=== PATIENT | male | born 1975 | race Caucasian/White ===

== ENCOUNTER 2016-03-31 01:36 | Emergency (ER) | payer OTHER ==
[~2016-03-31 01:36] MED LIST: ATARAX OR; PAXI20TA OR; TRAZ50TA OR; VALI5TAB OR; VICODIN PO
[2016-03-31 02:07] LABS: BASO % 0.5 % (0.0-1.0); EOS % 0.8 % (0.0-3.0); LARGE UNSTAINED CELL # 0.2 K/mm3 (0.0-0.4); LARGE UNSTAINED CELL % 2.8 % (0.0-4.0); LYMPH # 2.1 K/mm3 (1.5-4.5); LYMPH % 32.3 % (24.0-44.0); MEAN CORPUSCULAR HEMOGLOBIN 32.2 pg (27.0-33.0); MEAN CORPUSCULAR HGB CONC 36.7 g/dl (32.0-36.5); MEAN CORPUSCULAR VOLUME 87.6 fl (80.0-96.0); MONO # 0.4 K/mm3 (0.0-0.8); MONO % 6.4 % (0.0-5.0); NEUTROPHILS # 3.7 K/mm3 (1.8-7.7); NEUTROPHILS % 57.2 % (36.0-66.0); PLATELET COUNT, AUTOMATED 207 k/mm3 (150-450); RED CELL DISTRIBUTION WIDTH 11.8 % (11.5-14.5); WHITE BLOOD COUNT 6.6 K/mm3 (4.0-10.0)
[2016-03-31 02:39] LABS: ANION GAP 13 MEQ/L (8-16); BLOOD UREA NITROGEN 14 MG/DL (7-18); CALCIUM LEVEL 9.3 MG/DL (8.5-10.1); CARBON DIOXIDE LEVEL 20 MEQ/L (21-32); CHLORIDE LEVEL 108 MEQ/L (98-107); CREATININE FOR GFR 0.94 MG/DL (0.70-1.30); GLOMERULAR FILTRATION RATE > 60.0 (>60); GLUCOSE, FASTING 92 MG/DL (70-105); POTASSIUM SERUM 3.9 MEQ/L (3.5-5.1); SODIUM LEVEL 141 MEQ/L (136-145)
[2016-03-31] MEDS ORDERED: LORazepam 1 MG TAB As Ordered ONE (02:41)
--- NOTE | 2016-03-31 02:43 | REP ---
Clinical: Chest pain . Comparison: 03/08/2016 . Findings: The mediastinum and cardiac silhouette are stable and within normal limits for portable technique. The lung barker are clear without acute consolidation, effusion, or pneumothorax. Skeletal structures are intact. Impression: Normal portable chest x-ray Signed by Jerardo Barlow MD 03/31/2016 02:34 A
[2016-03-31 02:44] LABS: FREE T4 1.25 NG/DL (0.76-1.46); MAGNESIUM LEVEL 2.3 MG/DL (1.8-2.4); PHOSPHORUS LEVEL 2.6 MG/DL (2.5-4.9)
--- NOTE | 2016-03-31 03:36 | EDDOCDS ---
Physician Documentation [facility] Name: Joni Kirkpatrick Age: 40 yrs Sex: Male : 1975 Arrival Date: 03/31/2016 Time: 01:36 Bed 8 Private MD: Disposition: 03/31/16 03:20 Discharged to Home/Self Care. Impression: Anxiety disorder, unspecified, Insomnia. - Condition is Stable. - Discharge Instructions: Panic Attacks, Insomnia. - Medication Reconciliation, Local Pharmacy Hours form. - Follow up: [facility], [place]; When: 1 - 2 days; Reason: Recheck today's complaints. - Problem is new. - Symptoms have improved. - Notes: You were seen in the ED for anxiety and insomnia. Bloodwork along with EKG of the heart, cardiac monitoring and chest Xray showed no other acute findings. As you are feeling better you may return home to follow up with your primary doctor at the [facility] in the morning for ongoing evaluation and treatment. Return to the ED for any chest pain, trouble breathing, lightheadedness, loss of consciousness or any other concerns. Historical: - Allergies: No known drug Allergies; - Home Meds: 1. Tylenol PM 25-500 mg-mg/mL Oral soln nightly - PMHx: Anxiety; - PSHx: none; - Social history: Smoking status: Patient states was never smoker of tobacco. No barriers to communication noted, The patient speaks fluent Turkmen. - Family history: Not pertinent. - : The pt / caregiver states he / she is not on anticoagulants. Home medication list is obtained from the patient. - Exposure Risk Screening:: None identified. Vital Signs: 03/31 01:45 BP 146 / 93; Pulse 65; Resp 18 S; Pulse Ox 99% on R/A; Weight 78.02 kg / 172 lbs (R); af2 Height 5 ft. 10 in. (177.80 cm) (R); Pain 6/10; 02:13 Temp 98.8(TE); jmv 03:26 BP 113 / 77; Pulse 71; Resp 20; Temp 97.8(TE); Pulse Ox 98% on R/A; Pain 2/10; jmv 01:45 Body Mass Index 24.68 (78.02 kg, 177.80 cm) af2 MDM: 01:42 ECG WITH READING ER PHYS+CARDIAG ordered. EDMS 01:50 Inspector Mechanical/Pulse Ox/q 30 min VS ordered. br1 01:50 IV Saline Lock ordered. br1 01:50 Rhythm Strip to chart ordered. br1 01:50 Undress patient appropriately for examination ordered. br1 01:50 Oral Temp ordered. br1 01:51 Basic Metabolic Profile Ordered. EDMS 01:51 CBC with Diff Ordered. EDMS 01:51 Cardiac Injury Profile Ordered. EDMS 01:51 Troponin Ordered. EDMS 01:51 TSH with Free T4 Ordered. EDMS 01:51 Magnesium Level Ordered. EDMS 01:51 Phosphorous Level Ordered. EDMS 01:51 portable chest Ordered. EDMS 02:29 D-Dimer Quant Ordered. EDMS 02:29 LORazepam 0.5 mg PO once; PRN ANXIETY ordered. br1 02:30 Consult PFS/PSA/Filter Press Supervisor: Resources/Social Work ordered. br1 02:40 Financial registration complete. pm4 02:42 CBC with Diff Reviewed. br1 02:46 Basic Metabolic Profile Reviewed. br1 02:46 Cardiac Injury Profile Reviewed. br1 02:46 Troponin Reviewed. br1 02:46 TSH with Free T4 Reviewed. br1 02:46 Magnesium Level Reviewed. br1 02:46 Phosphorous Level Reviewed. br1 03:13 Consult PFS/PSA/Filter Press Supervisor: Resources/Social Work complete. cl 03:13 D-Dimer Quant Reviewed. br1 03:13 portable chest Reviewed. br1 03:15 REPLACED BY [facility] Payment Agreement was scanned into [employer] and attached to record. pm4 Administered Medications: 02:45 Drug: LORazepam 0.5 mg [lorazepam 1 mg tablet (0.5 tabs)] Route: PO; af2 Signatures: Dispatcher [employer] EDMS Fco Waters, PSA PSA cl Jac Shafer MD MD br1 Chrystal Thao,RN RN af2 Terrance Schaefer, Reg Reg pm4 The chart was reviewed and I authenticate all verbal orders and agree with the evaluation and treatment provided.Attachments: 03:15 REPLACED BY [facility] Payment Agreement pm4 MTDD
--- NOTE | 2016-03-31 03:37 | EDDOCDS ---
Nurse's Notes [facility] Name: Joni Kirkpatrick Age: 40 yrs Sex: Male : 1975 Arrival Date: 03/31/2016 Time: 01:36 Bed 8 Private MD: Diagnosis: Anxiety disorder, unspecified;Insomnia Presentation: 03/31 01:47 Presenting complaint: Patient states: palpitations, insomnia, sweating, states "I think af2 I'm having an anxiety attack." Reports recent loss of job, symptoms worsened since. Acute neurological deficits are not present. Mechanism of Injury: No Mechanism of Injury. Adult Sepsis Screening: The patient does not have new or worsening altered mentation. Patient's respiratory rate is less than 22. Systolic blood pressure is greater than 100. Patient has a qSOFA score of 0- Negative Sepsis Screen. Suicide/Homicide risk assessment- the patient denies having any suicidal and/or homicidal ideations and does not present with any other emotional, behavioral or mental health complaints. Status: Patient is not a service representative or dependent. Transition of care: patient was not received from another setting of care. 01:47 Acuity: TERESA Level 3 af2 01:47 Method Of Arrival: Walkin/Carried/Asstd af2 Triage Assessment: 01:48 General: Appears in no apparent distress, Behavior is anxious. Pain: Location: back af2 Pain currently is 6 out of 10 on a pain scale. Pt Declines HIV testing. The patient is triaged at the bedside. See Assessment in Nurses Notes section of ED record. Neurological: Level of Consciousness is awake, alert, obeys commands, Oriented to person, place, time. Cardiovascular: Heart tones S1 S2 present Rhythm is sinus rhythm No ectopy. Reports palpitations. Respiratory: Airway is patent Respiratory effort is even, unlabored, Breath sounds are clear bilaterally. Derm: Skin is normal. Musculoskeletal: Reports pain in back. Historical: - Allergies: No known drug Allergies; - Home Meds: 1. Tylenol PM 25-500 mg-mg/mL Oral soln nightly - PMHx: Anxiety; - PSHx: none; - Social history: Smoking status: Patient states was never smoker of tobacco. No barriers to communication noted, The patient speaks fluent [place] Islander. - Family history: Not pertinent. - : The pt / caregiver states he / she is not on anticoagulants. Home medication list is obtained from the patient. - Exposure Risk Screening:: None identified. Screenin:25 Screening information is obtained from the patient. Fall risk: No risks identified. af2 Assistance ADL's: requires no assistance with activities of daily living. Abuse/DV Screen: The patient / caregiver reports he/she is: not in a situation that causes fear, pain or injury. Nutritional screening: No deficits noted. Advance Directives: Currently, there is no health care proxy. home support is adequate. Assessment: 02:25 General: see triage assessment.. af2 03:00 General: Appears in no apparent distress, Fco Waters PSA in to speak with pt.. af2 Social Work Consult: 03:13 Social Work Note: Pt to ED c/o anxiety sx's, states he recently lost job and has had cl difficulty sleeping x 2 weeks, denies SI/HI/AH/VH/substance abuse, is very pleasant. PSA offered referrals, pt reports he has [place] insurance and has a walk-in appt. planned at [facility] later this morning, however pt did take referral info which includes 24 hr. crisis #'s. Pt c/o poor sleep/insomnia, requests medications until he can be seen at [facility] and anticipates it will take several days for any Rx meds to be delivered from [facility], PSA informed Dr. Shafer of pt request. Pt denies any other needs at this time, will f/u at [facility] later today. Vital Signs: 01:45 BP 146 / 93; Pulse 65; Resp 18 S; Pulse Ox 99% on R/A; Weight 78.02 kg (R); Height 5 af2 ft. 10 in. (177.80 cm) (R); Pain 6/10; 02:13 Temp 98.8(TE); jmv 03:26 BP 113 / 77; Pulse 71; Resp 20; Temp 97.8(TE); Pulse Ox 98% on R/A; Pain 2/10; jmv 01:45 Body Mass Index 24.68 (78.02 kg, 177.80 cm) af2 Vitals: 01:41 Log In Time: March 31, 2016 at 01:38. af2 ED Course: 01:37 Patient visited by Ruth Edwards, Reg. hs2 01:37 Patient moved to Waiting hs2 01:40 Chrystal Thao RN is Primary Nurse. af2 01:40 Patient moved to 8 af2 01:48 Triage Initiated af2 01:49 Jac Shafer MD is Attending Physician. br1 01:49 The patient / caregiver is instructed regarding the plan of care and ED course. Patient sls1 has correct armband on for positive identification. Placed in gown. Bed in low position. Call light in reach. Side rails up X2. supervisor meter shop on. Pulse ox on. 01:49 EKG done. (by ED staff). Reviewed by Jac Shafer MD. sls1 01:50 Patient visited by Chrystal Thao RN. af2 02:01 Phosphorous Level Sent. af2 02:01 Magnesium Level Sent. af2 02:01 TSH with Free T4 Sent. af2 02:01 Basic Metabolic Profile Sent. af2 02:01 CBC with Diff Sent. af2 02:01 Cardiac Injury Profile Sent. af2 02:01 Troponin Sent. af2 02:14 Patient visited by Gurdeep Callejas PCA. jmv 02:26 Patient visited by Chrystal Thao RN. af2 02:26 Inserted saline lock: 20 gauge in left hand and blood collected. The patient tolerated af2 the procedure well. 02:29 Patient visited by Jac Shafer MD. br1 02:30 D-Dimer Quant Sent. tmm1 03:00 Patient visited by Chrystal Thao RN. af2 03:00 Patient visited by Chrystal Thao RN. af2 03:00 portable chest Returned. EDMS 03:15 [facility] Payment Agreement was scanned into [email or web address] and attached to record. pm4 03:20 [facility] is Referral Physician. br1 03:26 Patient visited by Gurdeep Callejas PCA. jmv 03:34 Discontinued IV lock intact, bleeding controlled, pressure dressing applied, No af2 redness/swelling at site. No procedures done that require assistance. Administered Medications: 02:45 Drug: LORazepam 0.5 mg [lorazepam 1 mg tablet (0.5 tabs)] Route: PO; af2 Order Results: Lab Order: Basic Metabolic Profile; SPEC'M 03/31/16 01:59 Test: GLUCOSE, FASTING; Value: 92; Range: 70-105; Units: MG/DL; Status: F Test: BLOOD UREA NITROGEN; Value: 14; Range: 7-18; Units: MG/DL; Status: F Test: CREATININE FOR GFR; Value: 0.94; Range: 0.70-1.30; Units: MG/DL; Status: F Test: GLOMERULAR FILTRATION RATE; Value: > 60.0; Range: >60; Status: F Test: SODIUM LEVEL; Value: 141; Range: 136-145; Units: MEQ/L; Status: F Test: POTASSIUM SERUM; Value: 3.9; Range: 3.5-5.1; Units: MEQ/L; Status: F Test: CHLORIDE LEVEL; Value: 108; Range: 98-107; Abnormal: Above high normal; Units: MEQ/L; Status: F Test: CARBON DIOXIDE LEVEL; Value: 20; Range: 21-32; Abnormal: Below low normal; Units: MEQ/L; Status: F Test: ANION GAP; Value: 13; Range: 8-16; Units: MEQ/L; Status: F Test: CALCIUM LEVEL; Value: 9.3; Range: 8.5-10.1; Units: MG/DL; Status: F Test Note: ; Units are mL/min/1.73 m2 Chronic Kidney Disease Staging per NKF: Stage I & II GFR >=60 Normal to Mildly Decreased Stage III GFR 30-59 Moderately Decreased Stage IV GFR 15-29 Severely Decreased Stage V GFR <15 Very Little GFR Left ESRD GFR <15 on BEHAVIORAL INTERVENTION SPECIALIST Lab Order: CBC with Diff; SPEC'M 03/31/16 01:59 Test: WHITE BLOOD COUNT; Value: 6.6; Range: 4.0-10.0; Units: K/mm3; Status: F Test: RED BLOOD COUNT; Value: 5.07; Range: 4.30-6.10; Units: M/mm3; Status: F Test: HEMOGLOBIN; Value: 16.3; Range: 14.0-18.0; Units: g/dl; Status: F Test: HEMATOCRIT; Value: 44.4; Range: 42.0-52.0; Units: %; Status: F Test: MEAN CORPUSCULAR VOLUME; Value: 87.6; Range: 80.0-96.0; Units: fl; Status: F Test: MEAN CORPUSCULAR HEMOGLOBIN; Value: 32.2; Range: 27.0-33.0; Units: pg; Status: F Test: MEAN CORPUSCULAR HGB CONC; Value: 36.7; Range: 32.0-36.5; Abnormal: Above high normal; Units: g/dl; Status: F Test: RED CELL DISTRIBUTION WIDTH; Value: 11.8; Range: 11.5-14.5; Units: %; Status: F Test: PLATELET COUNT, AUTOMATED; Value: 207; Range: 150-450; Units: k/mm3; Status: F Test: NEUTROPHILS %; Value: 57.2; Range: 36.0-66.0; Units: %; Status: F Test: LYMPH %; Value: 32.3; Range: 24.0-44.0; Units: %; Status: F Test: MONO %; Value: 6.4; Range: 0.0-5.0; Abnormal: Above high normal; Units: %; Status: F Test: EOS %; Value: 0.8; Range: 0.0-3.0; Units: %; Status: F Test: BASO %; Value: 0.5; Range: 0.0-1.0; Units: %; Status: F Test: LARGE UNSTAINED CELL %; Value: 2.8; Range: 0.0-4.0; Units: %; Status: F Test: NEUTROPHILS #; Value: 3.7; Range: 1.8-7.7; Units: K/mm3; Status: F Test: LYMPH #; Value: 2.1; Range: 1.5-4.5; Units: K/mm3; Status: F Test: MONO #; Value: 0.4; Range: 0.0-0.8; Units: K/mm3; Status: F Test: EOS #; Value: 0.0; Range: 0.0-0.50; Units: K/mm3; Status: F Test: BASO #; Value: 0.0; Range: 0.0-0.2; Units: K/mm3; Status: F Test: LARGE UNSTAINED CELL #; Value: 0.2; Range: 0.0-0.4; Units: K/mm3; Status: F Lab Order: Cardiac Injury Profile; SPEC'M 03/31/16 01:59 Test: CPK CREATINE PHOSPHOKINASE; Value: 85; Range: 39-308; Units: U/L; Status: F Test: CK-MB VALUE MASS; Value: 1.0; Range: 0.0-3.6; Units: NG/ML; Status: F Test: MB/CK RELATIVE INDEX; Value: 1.17; Range: < OR =4; Status: F Test Note: ; DIAGNOSIS CRITERIA MMB ng/ml Relative Index (RI) NON-AMI < or = 5 N/A ZEPEDA ZONE > 5 < or = 4 AMI > 5 > 4 Lab Order: Troponin; 03/31/16:59 Test: TROPONIN I; Value: < 0.02; Range: < 0.10; Units: NG/ML; Status: F Test Note: ; Troponin I Reference Interval for [employer] LOCI: 99th Percentile= 0.00-0.045 ng/ml Risk Stratification: <= 0.10 ng/ml Decreased Risk for Adverse Clinical Events. 0.10-1.50 ng/ml Increased Risk for Adverse Clinical Events. Evaluation of additional criterion and/or repeat testing in 2-6 hours is suggested to rule out myocardial damage. >= 1.50 ng/ml Indicative of Myocardial Injury. Lab Order: TSH with Free T4; 03/31/16:59 Test: THYROID STIMULATING HORMONE; Value: 0.910; Range: 0.358-3.740; Units: uIU/ML; Status: F Test: FREE T4; Value: 1.25; Range: 0.76-1.46; Units: NG/DL; Status: F Lab Order: Magnesium Level; 03/31/16:59 Test: MAGNESIUM LEVEL; Value: 2.3; Range: 1.8-2.4; Units: MG/DL; Status: F Lab Order: Phosphorous Level; 03/31/16:59 Test: PHOSPHORUS LEVEL; Value: 2.6; Range: 2.5-4.9; Units: MG/DL; Status: F Lab Order: D-Dimer Quant; 03/31/16:59 Test: D-DIMER QUANT; Value: < 270.0; Range: <500; Units: ng/ml; Status: F Radiology Order: portable chest Test: portable chest REASON FOR EXAMINATION: Chest Pain; Clinical: Chest pain .; ; Comparison: 03/08/2016 .; ; Findings:; The mediastinum and cardiac silhouette are stable and within normal limits for; portable technique. The lung barker are clear without acute consolidation,; effusion, or pneumothorax. Skeletal structures are intact.; ; Impression:; Normal portable chest x-ray; ; ; Signed by; Jerardo Barlow MD 03/31/2016 02:34 A; Outcome: 03:20 Discharge ordered by Provider. br1 03:34 Discharge Assessment: Patient awake, alert and oriented x 3. No cognitive and/or af2 functional deficits noted. Patient verbalized understanding of disposition instructions. patient administered narcotics - no. The following High Risk Discharge criteria are identified: None. Discharged to home ambulatory. Condition: stable. Discharge instructions given to patient, Instructed on discharge instructions, follow up and referral plans. Demonstrated understanding of instructions, Pt was receptive of discharge instructions/ teaching. No special radiology studies were completed. Property :Personal belongings accompany Pt. 03:35 Patient left the ED. af2 Signatures: Dispatcher [employer] EDMS Fco Waters, PSA PSA cl Jac Shafer MD MD br1 Monalisa Dye RN RN sls1 Veronica Garcia, CAREER RESOURCE TECHNICIAN CAREER RESOURCE TECHNICIAN tmm1 Chrystal Thao,RN RN af2 Ruth Edwards, Reg Reg hs2 Gurdeep Callejas, CAREER RESOURCE TECHNICIAN CAREER RESOURCE TECHNICIAN jmv Terrance Schaefer, Reg Reg pm4 MTDD
--- NOTE | 2016-04-01 06:43 | ECGEPIP ---
Stationary ECG Study [facility] - ED Test Date: 2016-03-31 Pat Name: DORA VIDES Department: Room: - Gender: M Liquor Department Manager: : 1975 Requested By: JOSEPH Anna Order Number: [id number] Reading MD: Gianna Keller Measurements Intervals [place] Rate: 57 P: 44 DE: 151 QRS: -8 QRSD: 86 T: 29 QT: 378 QTc: 371 Interpretive Statements SINUS BRADYCARDIA WITH SINUS ARRHYTHMIA SIMILAR 10/03/11 Electronically Signed On 04-01-2016 6:42:28 EST by Gianna Keller
--- NOTE | 2016-04-02 04:37 | EDDOCDS ---
Physician Documentation [facility] Name: Joni Kirkpatrick Age: 40 yrs Sex: Male : 1975 Arrival Date: 03/31/2016 Time: 01:36 Bed 8 Private MD: Disposition: 03/31/16 03:20 Discharged to Home/Self Care. Impression: Anxiety disorder, unspecified, Insomnia. - Condition is Stable. - Discharge Instructions: Panic Attacks, Insomnia. - Medication Reconciliation, Local Pharmacy Hours form. - Follow up: [facility] [place]; When: 1 - 2 days; Reason: Recheck today's complaints. - Problem is new. - Symptoms have improved. - Notes: You were seen in the ED for anxiety and insomnia. Bloodwork along with EKG of the heart, cardiac monitoring and chest Xray showed no other acute findings. As you are feeling better you may return home to follow up with your primary doctor at the [facility] in the morning for ongoing evaluation and treatment. Return to the ED for any chest pain, trouble breathing, lightheadedness, loss of consciousness or any other concerns. Historical: - Allergies: No known drug Allergies; - Home Meds: 1. Tylenol PM 25-500 mg-mg/mL Oral soln nightly - PMHx: Anxiety; - PSHx: none; - Social history: Smoking status: Patient states was never smoker of tobacco. No barriers to communication noted, The patient speaks fluent Afghan. - Family history: Not pertinent. - : The pt / caregiver states he / she is not on anticoagulants. Home medication list is obtained from the patient. - Exposure Risk Screening:: None identified. Vital Signs: 03/31 01:45 BP 146 / 93; Pulse 65; Resp 18 S; Pulse Ox 99% on R/A; Weight 78.02 kg / 172 lbs (R); af2 Height 5 ft. 10 in. (177.80 cm) (R); Pain 6/10; 02:13 Temp 98.8(TE); jmv 03:26 BP 113 / 77; Pulse 71; Resp 20; Temp 97.8(TE); Pulse Ox 98% on R/A; Pain 2/10; jmv 01:45 Body Mass Index 24.68 (78.02 kg, 177.80 cm) af2 MDM: 01:42 ECG WITH READING ER PHYS+CARDIAG ordered. EDMS 01:50 Manager Critical Care/Pulse Ox/q 30 min VS ordered. br1 01:50 IV Saline Lock ordered. br1 01:50 Rhythm Strip to chart ordered. br1 01:50 Undress patient appropriately for examination ordered. br1 01:50 Oral Temp ordered. br1 01:51 Basic Metabolic Profile Ordered. EDMS 01:51 CBC with Diff Ordered. EDMS 01:51 Cardiac Injury Profile Ordered. EDMS 01:51 Troponin Ordered. EDMS 01:51 TSH with Free T4 Ordered. EDMS 01:51 Magnesium Level Ordered. EDMS 01:51 Phosphorous Level Ordered. EDMS 01:51 portable chest Ordered. EDMS 02:29 D-Dimer Quant Ordered. EDMS 02:29 LORazepam 0.5 mg PO once; PRN ANXIETY ordered. br1 02:30 Consult PFS/PSA/Reactor Operator: Resources/Social Work ordered. br1 02:40 Financial registration complete. pm4 02:42 CBC with Diff Reviewed. br1 02:46 Basic Metabolic Profile Reviewed. br1 02:46 Cardiac Injury Profile Reviewed. br1 02:46 Troponin Reviewed. br1 02:46 TSH with Free T4 Reviewed. br1 02:46 Magnesium Level Reviewed. br1 02:46 Phosphorous Level Reviewed. br1 03:13 Consult PFS/PSA/Reactor Operator: Resources/Social Work complete. cl 03:13 D-Dimer Quant Reviewed. br1 03:13 portable chest Reviewed. br1 03:15 [facility] Payment Agreement was scanned into [employer] and attached to record. pm4 14:02 T-Sheet-- Draft Copy was scanned into [employer] and attached to record. gb 14:03 ECG/EKG was scanned into [employer] and attached to record. gb 14:03 Radiology Report was scanned into [employer] and attached to record. gb Administered Medications: 02:45 Drug: LORazepam 0.5 mg [lorazepam 1 mg tablet (0.5 tabs)] Route: PO; af2 Signatures: Dispatcher [employer] EDMS Fco Waters, CHERIE PSA cl Romy Banda, Reg Reg gb Jac Shafer MD MD br1 Chrystal Thoa RN RN af2 Terrance Schaefer, Reg Reg pm4 The chart was reviewed and I authenticate all verbal orders and agree with the evaluation and treatment provided.Attachments: 03:15 [facility] Payment Agreement pm4 14:02 T-Sheet-- Draft Copy gb 14:03 ECG/EKG gb Chart Complete MTDD
--- NOTE | 2016-04-02 04:37 | EDDOCDS ---
Nurse's Notes [facility] Name: Joni Kirkpatrick Age: 40 yrs Sex: Male : 1975 Arrival Date: 03/31/2016 Time: 01:36 Bed 8 Private MD: Diagnosis: Anxiety disorder, unspecified;Insomnia Presentation: 03/31 01:47 Presenting complaint: Patient states: palpitations, insomnia, sweating, states "I think af2 I'm having an anxiety attack." Reports recent loss of job, symptoms worsened since. Acute neurological deficits are not present. Mechanism of Injury: No Mechanism of Injury. Adult Sepsis Screening: The patient does not have new or worsening altered mentation. Patient's respiratory rate is less than 22. Systolic blood pressure is greater than 100. Patient has a qSOFA score of 0- Negative Sepsis Screen. Suicide/Homicide risk assessment- the patient denies having any suicidal and/or homicidal ideations and does not present with any other emotional, behavioral or mental health complaints. Status: Patient is not a customer service coordinator or dependent. Transition of care: patient was not received from another setting of care. 01:47 Acuity: TERESA Level 3 af2 01:47 Method Of Arrival: Walkin/Carried/Asstd af2 Triage Assessment: 01:48 General: Appears in no apparent distress, Behavior is anxious. Pain: Location: back af2 Pain currently is 6 out of 10 on a pain scale. Pt Declines HIV testing. The patient is triaged at the bedside. See Assessment in Nurses Notes section of ED record. Neurological: Level of Consciousness is awake, alert, obeys commands, Oriented to person, place, time. Cardiovascular: Heart tones S1 S2 present Rhythm is sinus rhythm No ectopy. Reports palpitations. Respiratory: Airway is patent Respiratory effort is even, unlabored, Breath sounds are clear bilaterally. Derm: Skin is normal. Musculoskeletal: Reports pain in back. Historical: - Allergies: No known drug Allergies; - Home Meds: 1. Tylenol PM 25-500 mg-mg/mL Oral soln nightly - PMHx: Anxiety; - PSHx: none; - Social history: Smoking status: Patient states was never smoker of tobacco. No barriers to communication noted, The patient speaks fluent Moroccan. - Family history: Not pertinent. - : The pt / caregiver states he / she is not on anticoagulants. Home medication list is obtained from the patient. - Exposure Risk Screening:: None identified. Screenin:25 Screening information is obtained from the patient. Fall risk: No risks identified. af2 Assistance ADL's: requires no assistance with activities of daily living. Abuse/DV Screen: The patient / caregiver reports he/she is: not in a situation that causes fear, pain or injury. Nutritional screening: No deficits noted. Advance Directives: Currently, there is no health care proxy. home support is adequate. Assessment: 02:25 General: see triage assessment.. af2 03:00 General: Appears in no apparent distress, Fco Waters PSA in to speak with pt.. af2 Social Work Consult: 03:13 Social Work Note: Pt to ED c/o anxiety sx's, states he recently lost job and has had cl difficulty sleeping x 2 weeks, denies SI/HI/AH/VH/substance abuse, is very pleasant. PSA offered referrals, pt reports he has [place] insurance and has a walk-in appt. planned at [place] later this morning, however pt did take referral info which includes 24 hr. crisis #'s. Pt c/o poor sleep/insomnia, requests medications until he can be seen at [place] and anticipates it will take several days for any Rx meds to be delivered from [facility], PSA informed Dr. Shafer of pt request. Pt denies any other needs at this time, will f/u at [place] later today. Vital Signs: 01:45 BP 146 / 93; Pulse 65; Resp 18 S; Pulse Ox 99% on R/A; Weight 78.02 kg (R); Height 5 af2 ft. 10 in. (177.80 cm) (R); Pain 6/10; 02:13 Temp 98.8(TE); jmv 03:26 BP 113 / 77; Pulse 71; Resp 20; Temp 97.8(TE); Pulse Ox 98% on R/A; Pain 2/10; jmv 01:45 Body Mass Index 24.68 (78.02 kg, 177.80 cm) af2 Vitals: 01:41 Log In Time: March 31, 2016 at 01:38. af2 ED Course: 01:37 Patient visited by Ruth Edwards, Reg. hs2 01:37 Patient moved to Waiting hs2 01:40 Chrystal ThaoRN is Primary Nurse. af2 01:40 Patient moved to 8 af2 01:48 Triage Initiated af2 01:49 Joseph Shafer MD is Attending Physician. br1 01:49 The patient / caregiver is instructed regarding the plan of care and ED course. Patient sls1 has correct armband on for positive identification. Placed in gown. Bed in low position. Call light in reach. Side rails up X2. monitor tech on. Pulse ox on. 01:49 EKG done. (by ED staff). Reviewed by Joseph Shafer MD. sls1 01:50 Patient visited by Chrystal Thao RN. af2 02:01 Phosphorous Level Sent. af2 02:01 Magnesium Level Sent. af2 02:01 TSH with Free T4 Sent. af2 02:01 Basic Metabolic Profile Sent. af2 02:01 CBC with Diff Sent. af2 02:01 Cardiac Injury Profile Sent. af2 02:01 Troponin Sent. af2 02:14 Patient visited by Gurdeep Callejas PCA. jmv 02:26 Patient visited by Chrystal Thao RN. af2 02:26 Inserted saline lock: 20 gauge in left hand and blood collected. The patient tolerated af2 the procedure well. 02:29 Patient visited by Joseph Shafer MD. br1 02:30 D-Dimer Quant Sent. tmm1 03:00 Patient visited by Chrystal Thao RN. af2 03:00 Patient visited by Chrystal Thao RN. af2 03:00 portable chest Returned. EDMS 03:15 [facility] [place] was scanned into [employer] and attached to record. pm4 03:20 [facility] is Referral Physician. br1 03:26 Patient visited by Gurdeep Callejas PCA. jmv 03:34 Discontinued IV lock intact, bleeding controlled, pressure dressing applied, No af2 redness/swelling at site. No procedures done that require assistance. 14:02 T-Sheet-- Draft Copy was scanned into [employer] and attached to record. gb 14:03 ECG/EKG was scanned into [employer] and attached to record. gb 14:03 Radiology Report was scanned into [employer] and attached to record. gb 04/01 06:53 EKG-ADULT Returned. EDMS Administered Medications: 03/31 02:45 Drug: LORazepam 0.5 mg [lorazepam 1 mg tablet (0.5 tabs)] Route: PO; af2 Order Results: Lab Order: Basic Metabolic Profile; SPEC'M 03/31/16 01:59 Test: GLUCOSE, FASTING; Value: 92; Range: 70-105; Units: MG/DL; Status: F Test: BLOOD UREA NITROGEN; Value: 14; Range: 7-18; Units: MG/DL; Status: F Test: CREATININE FOR GFR; Value: 0.94; Range: 0.70-1.30; Units: MG/DL; Status: F Test: GLOMERULAR FILTRATION RATE; Value: > 60.0; Range: >60; Status: F Test: SODIUM LEVEL; Value: 141; Range: 136-145; Units: MEQ/L; Status: F Test: POTASSIUM SERUM; Value: 3.9; Range: 3.5-5.1; Units: MEQ/L; Status: F Test: CHLORIDE LEVEL; Value: 108; Range: 98-107; Abnormal: Above high normal; Units: MEQ/L; Status: F Test: CARBON DIOXIDE LEVEL; Value: 20; Range: 21-32; Abnormal: Below low normal; Units: MEQ/L; Status: F Test: ANION GAP; Value: 13; Range: 8-16; Units: MEQ/L; Status: F Test: CALCIUM LEVEL; Value: 9.3; Range: 8.5-10.1; Units: MG/DL; Status: F Test Note: ; Units are mL/min/1.73 m2 Chronic Kidney Disease Staging per NKF: Stage I & II GFR >=60 Normal to Mildly Decreased Stage III GFR 30-59 Moderately Decreased Stage IV GFR 15-29 Severely Decreased Stage V GFR <15 Very Little GFR Left ESRD GFR <15 on INFORMATICS NURSE Lab Order: CBC with Diff; SPEC'M 03/31/16 01:59 Test: WHITE BLOOD COUNT; Value: 6.6; Range: 4.0-10.0; Units: K/mm3; Status: F Test: RED BLOOD COUNT; Value: 5.07; Range: 4.30-6.10; Units: M/mm3; Status: F Test: HEMOGLOBIN; Value: 16.3; Range: 14.0-18.0; Units: g/dl; Status: F Test: HEMATOCRIT; Value: 44.4; Range: 42.0-52.0; Units: %; Status: F Test: MEAN CORPUSCULAR VOLUME; Value: 87.6; Range: 80.0-96.0; Units: fl; Status: F Test: MEAN CORPUSCULAR HEMOGLOBIN; Value: 32.2; Range: 27.0-33.0; Units: pg; Status: F Test: MEAN CORPUSCULAR HGB CONC; Value: 36.7; Range: 32.0-36.5; Abnormal: Above high normal; Units: g/dl; Status: F Test: RED CELL DISTRIBUTION WIDTH; Value: 11.8; Range: 11.5-14.5; Units: %; Status: F Test: PLATELET COUNT, AUTOMATED; Value: 207; Range: 150-450; Units: k/mm3; Status: F Test: NEUTROPHILS %; Value: 57.2; Range: 36.0-66.0; Units: %; Status: F Test: LYMPH %; Value: 32.3; Range: 24.0-44.0; Units: %; Status: F Test: MONO %; Value: 6.4; Range: 0.0-5.0; Abnormal: Above high normal; Units: %; Status: F Test: EOS %; Value: 0.8; Range: 0.0-3.0; Units: %; Status: F Test: BASO %; Value: 0.5; Range: 0.0-1.0; Units: %; Status: F Test: LARGE UNSTAINED CELL %; Value: 2.8; Range: 0.0-4.0; Units: %; Status: F Test: NEUTROPHILS #; Value: 3.7; Range: 1.8-7.7; Units: K/mm3; Status: F Test: LYMPH #; Value: 2.1; Range: 1.5-4.5; Units: K/mm3; Status: F Test: MONO #; Value: 0.4; Range: 0.0-0.8; Units: K/mm3; Status: F Test: EOS #; Value: 0.0; Range: 0.0-0.50; Units: K/mm3; Status: F Test: BASO #; Value: 0.0; Range: 0.0-0.2; Units: K/mm3; Status: F Test: LARGE UNSTAINED CELL #; Value: 0.2; Range: 0.0-0.4; Units: K/mm3; Status: F Lab Order: Cardiac Injury Profile; 03/31/16:59 Test: CPK CREATINE PHOSPHOKINASE; Value: 85; Range: 39-308; Units: U/L; Status: F Test: CK-MB VALUE MASS; Value: 1.0; Range: 0.0-3.6; Units: NG/ML; Status: F Test: MB/CK RELATIVE INDEX; Value: 1.17; Range: < OR =4; Status: F Test Note: ; DIAGNOSIS CRITERIA MMB ng/ml Relative Index (RI) NON-AMI < or = 5 N/A ZEPEDA ZONE > 5 < or = 4 AMI > 5 > 4 Lab Order: Troponin; 03/31/16 Test: TROPONIN I; Value: < 0.02; Range: < 0.10; Units: NG/ML; Status: F Test Note: ; Troponin I Reference Interval for [place] LOCI: 99th Percentile= 0.00-0.045 ng/ml Risk Stratification: <= 0.10 ng/ml Decreased Risk for Adverse Clinical Events. 0.10-1.50 ng/ml Increased Risk for Adverse Clinical Events. Evaluation of additional criterion and/or repeat testing in 2-6 hours is suggested to rule out myocardial damage. >= 1.50 ng/ml Indicative of Myocardial Injury. Lab Order: TSH with Free T4; 03/31/16 Test: THYROID STIMULATING HORMONE; Value: 0.910; Range: 0.358-3.740; Units: uIU/ML; Status: F Test: FREE T4; Value: 1.25; Range: 0.76-1.46; Units: NG/DL; Status: F Lab Order: Magnesium Level; 03/31/16 Test: MAGNESIUM LEVEL; Value: 2.3; Range: 1.8-2.4; Units: MG/DL; Status: F Lab Order: Phosphorous Level; 03/31/16 Test: PHOSPHORUS LEVEL; Value: 2.6; Range: 2.5-4.9; Units: MG/DL; Status: F Lab Order: D-Dimer Quant; SPEC'M 03/31/16 01:59 Test: D-DIMER QUANT; Value: < 270.0; Range: <500; Units: ng/ml; Status: F Radiology Order: EKG-ADULT Test: EKG-ADULT REASON FOR EXAMINATION: palpitations; Stationary ECG Study; [facility] - ED; ; Test Date: 2016-03-31; Pat Name: JONI KIRKPATRICK Department:; Room: -; Gender: M Kitchen Porter: ss; : 1975 Requested By: JOSEPH Anna; Order Number: [id number] Reading MD: Gianna Keller; Measurements; Intervals [place]; Rate: 57 P: 44; NC: 151 QRS: -8; QRSD: 86 T: 29; QT: 378; QTc: 371; Interpretive Statements; SINUS BRADYCARDIA WITH SINUS ARRHYTHMIA; SIMILAR 10/03/11; Electronically Signed On 04-01-2016 6:42:28 EST by Gianna Keller; Radiology Order: portable chest Test: portable chest REASON FOR EXAMINATION: Chest Pain; Clinical: Chest pain .; ; Comparison: 03/08/2016 .; ; Findings:; The mediastinum and cardiac silhouette are stable and within normal limits for; portable technique. The lung barker are clear without acute consolidation,; effusion, or pneumothorax. Skeletal structures are intact.; ; Impression:; Normal portable chest x-ray; ; ; Signed by; Jerardo Barlow MD 03/31/2016 02:34 A; Outcome: 03:20 Discharge ordered by Provider. br1 03:34 Discharge Assessment: Patient awake, alert and oriented x 3. No cognitive and/or af2 functional deficits noted. Patient verbalized understanding of disposition instructions. patient administered narcotics - no. The following High Risk Discharge criteria are identified: None. Discharged to home ambulatory. Condition: stable. Discharge instructions given to patient, Instructed on discharge instructions, follow up and referral plans. Demonstrated understanding of instructions, Pt was receptive of discharge instructions/ teaching. No special radiology studies were completed. Property :Personal belongings accompany Pt. 03:35 Patient left the ED. af2 Signatures: Dispatcher [employer] EDMS Fco Waters, PSA PSA cl Romy Banda, Reg Reg gb Joseph Shafer MD MD br1 Monalisa Dye RN RN sls1 Rahda, Veronica, RESOURCE AGENT RESOURCE AGENT tmm1 Chrystal Thao,WARREN RN af2 Ruth Edwards, Reg Reg hs2 Callejas, Gurdeep, RESOURCE AGENT RESOURCE AGENT jmv Terrance Schaefer, Reg Reg pm4 Chart Complete MTDD
--- NOTE | 2016-04-02 04:37 | EDDOCDS ---
Physician Documentation [facility] Name: Joni Kirkpatrick Age: 40 yrs Sex: Male : 1975 Arrival Date: 03/31/2016 Time: 01:36 Bed 8 Private MD: Disposition: 03/31/16 03:20 Discharged to Home/Self Care. Impression: Anxiety disorder, unspecified, Insomnia. - Condition is Stable. - Discharge Instructions: Panic Attacks, Insomnia. - Medication Reconciliation, Local Pharmacy Hours form. - Follow up: [facility], [place]; When: 1 - 2 days; Reason: Recheck today's complaints. - Problem is new. - Symptoms have improved. - Notes: You were seen in the ED for anxiety and insomnia. Bloodwork along with EKG of the heart, cardiac monitoring and chest Xray showed no other acute findings. As you are feeling better you may return home to follow up with your primary doctor at the [facility] in the morning for ongoing evaluation and treatment. Return to the ED for any chest pain, trouble breathing, lightheadedness, loss of consciousness or any other concerns. Historical: - Allergies: No known drug Allergies; - Home Meds: 1. Tylenol PM 25-500 mg-mg/mL Oral soln nightly - PMHx: Anxiety; - PSHx: none; - Social history: Smoking status: Patient states was never smoker of tobacco. No barriers to communication noted, The patient speaks fluent Spanish. - Family history: Not pertinent. - : The pt / caregiver states he / she is not on anticoagulants. Home medication list is obtained from the patient. - Exposure Risk Screening:: None identified. Vital Signs: 03/31 01:45 BP 146 / 93; Pulse 65; Resp 18 S; Pulse Ox 99% on R/A; Weight 78.02 kg / 172 lbs (R); af2 Height 5 ft. 10 in. (177.80 cm) (R); Pain 6/10; 02:13 Temp 98.8(TE); jmv 03:26 BP 113 / 77; Pulse 71; Resp 20; Temp 97.8(TE); Pulse Ox 98% on R/A; Pain 2/10; jmv 01:45 Body Mass Index 24.68 (78.02 kg, 177.80 cm) af2 MDM: 01:42 ECG WITH READING ER PHYS+CARDIAG ordered. EDMS 01:50 Hearing Aid Consultant/Pulse Ox/q 30 min VS ordered. br1 01:50 IV Saline Lock ordered. br1 01:50 Rhythm Strip to chart ordered. br1 01:50 Undress patient appropriately for examination ordered. br1 01:50 Oral Temp ordered. br1 01:51 Basic Metabolic Profile Ordered. EDMS 01:51 CBC with Diff Ordered. EDMS 01:51 Cardiac Injury Profile Ordered. EDMS 01:51 Troponin Ordered. EDMS 01:51 TSH with Free T4 Ordered. EDMS 01:51 Magnesium Level Ordered. EDMS 01:51 Phosphorous Level Ordered. EDMS 01:51 portable chest Ordered. EDMS 02:29 D-Dimer Quant Ordered. EDMS 02:29 LORazepam 0.5 mg PO once; PRN ANXIETY ordered. br1 02:30 Consult PFS/PSA/Gasoline Service Attendant: Resources/Social Work ordered. br1 02:40 Financial registration complete. pm4 02:42 CBC with Diff Reviewed. br1 02:46 Basic Metabolic Profile Reviewed. br1 02:46 Cardiac Injury Profile Reviewed. br1 02:46 Troponin Reviewed. br1 02:46 TSH with Free T4 Reviewed. br1 02:46 Magnesium Level Reviewed. br1 02:46 Phosphorous Level Reviewed. br1 03:13 Consult PFS/PSA/Gasoline Service Attendant: Resources/Social Work complete. cl 03:13 D-Dimer Quant Reviewed. br1 03:13 portable chest Reviewed. br1 03:15 [facility] Payment Agreement was scanned into [employer] and attached to record. pm4 14:02 T-Sheet-- Draft Copy was scanned into [employer] and attached to record. gb 14:03 ECG/EKG was scanned into [employer] and attached to record. gb 14:03 Radiology Report was scanned into [employer] and attached to record. gb Administered Medications: 02:45 Drug: LORazepam 0.5 mg [lorazepam 1 mg tablet (0.5 tabs)] Route: PO; af2 Signatures: Dispatcher [employer] EDMS Fco Waters, CHERIE PSA cl Romy Banda, Reg Reg gb Jac Shafer MD MD br1 Chrystal Thao RN RN af2 Terrance Schaefer, Reg Reg pm4 The chart was reviewed and I authenticate all verbal orders and agree with the evaluation and treatment provided.Attachments: 03:15 [facility] Payment Agreement pm4 14:02 T-Sheet-- Draft Copy gb 14:03 ECG/EKG gb Chart Complete MTDD
== END 2016-03-31 03:35 | disposition home or self-care (01) ==
LOC: M ED 01:36
DX: F41.9 Anxiety disorder, unspecified (principal); G47.00 Insomnia, unspecified

== ENCOUNTER 2016-04-15 04:20 | Emergency (ER) | payer OTHER ==
--- NOTE | 2016-04-15 06:00 | EDDOCDS ---
Nurse's Notes [facility] Name: Joni Kirkpatrick Age: 40 yrs Sex: Male : 1975 Arrival Date: 04/15/2016 Time: 04:20 Bed [facility] [[email or web address] Private MD: Diagnosis: Insomnia Presentation: 04/15 04:26 Presenting complaint: Patient states: he is feeling very shaky and sick. Reports nn1 insomnia x 3 weeks, seen in ED 1 week ago. Patient given trazodone by PCP, reports no sleep. Patient also prescribed Paxil for anxiety but states it keeps him awake at night so he stopped taking it, has not had x 2 days. Adult Sepsis Screening: The patient does not have new or worsening altered mentation. Patient's respiratory rate is less than 22. Systolic blood pressure is greater than 100. Patient has a qSOFA score of 0- Negative Sepsis Screen. Suicide/Homicide risk assessment- the patient denies having any suicidal and/or homicidal ideations and does not present with any other emotional, behavioral or mental health complaints. Status: Patient is not a auto servicer or dependent. Transition of care: patient was not received from another setting of care. 04:26 Acuity: TERESA Level 4 nn1 04:26 Method Of Arrival: Walkin/Carried/Asstd nn1 Triage Assessment: 04:30 General: Appears in no apparent distress, Behavior is appropriate for age, cooperative. nn1 General: States he feels shaky and nauseous. . Pain: Denies pain. HIV screening NA for this visit Offered previously. Neurological: Level of Consciousness is awake, alert, Oriented to person, place, time. GI: Reports nausea. Derm: Skin is pink, warm & dry. Historical: - Allergies: No known drug Allergies; - Home Meds: 1. paroxetine HCl 40 mg Oral tab 20 mg once daily has not taken x 2 days 2. trazodone 50 mg Oral tab 1 tab nightly 3. melatonin 10 mg Oral tab - PMHx: Anxiety; Insomnia; - PSHx: none; - The history from nurses notes was reviewed: and I agree with what is documented. - Social history: Smoking status: Patient states was never smoker of tobacco. No barriers to communication noted, The patient speaks fluent Ethiopian, Speaks appropriately for age. - : The pt / caregiver states he / she is not on anticoagulants. Home medication list is obtained from the patient. - Hospitalizations: : No recent hospitalization is reported. - Exposure Risk Screening:: None identified. - Immunization history:: All immunizations up-to-date. - Family history: Not pertinent. Screenin:24 Screening information is obtained from the patient. Fall risk: No risks identified. mgs Assistance ADL's: requires no assistance with activities of daily living. Abuse/DV Screen: The patient / caregiver reports he/she is: not in a situation that causes fear, pain or injury. Nutritional screening: No deficits noted. Advance Directives: Currently, there is no health care proxy. There is no active DNR order. home support is adequate. Assessment: 04:30 General: see triage assessment. rw1 05:23 General: Appears in no apparent distress, Behavior is appropriate for age, cooperative. mgs Neurological: Level of Consciousness is awake, alert, Oriented to person, place, time. Cardiovascular: Capillary refill < 3 seconds Heart tones S1 S2 present Pulses are 2+ in right radial artery and left radial artery. Respiratory: Airway is patent Respiratory effort is even, unlabored, Respiratory pattern is regular, symmetrical. Derm: Skin is pink, warm & dry. Social Work Consult: 05:21 Social Work Note: PT was seen here 03/31 for similar complaint and he followed up with rigoberto his provider via [facility]. He was prescribed Trazadone 50-100 mg HS and Paxil 20mg daily. PT states the Trazadone had no beneficial effect and he is choosing not to take the Paxil as he does not wish to be on a shelter med as he is hopeful the spike with his anxiety is related to his recent insomnia. PT states he had a similar situation after his father and it resolved but this time "This is going into the 4th week and I can't keep doing this to my family" currently PT and are sleeping separately in their home due to his insomnia interrupting her sleep. PT denies SI/HI or hallucinations. PT states he will call or go see his provider when the [facility] opens and he will discuss the lack of benefit the current medications have provided. Status: Retired. Vital Signs: 04:31 BP 135 / 94; Pulse 68; Resp 18; Temp 96.1; Pulse Ox 100% on R/A; Weight 77.56 kg; nn1 Height 5 ft. 10 in. (177.80 cm); Pain 0/10; 05:57 BP 124 / 91; Pulse 78; Resp 16; Temp 96.8(T); Pulse Ox 98% on R/A; Pain 0/10; rw1 04:31 Body Mass Index 24.54 (77.56 kg, 177.80 cm) nn1 Vitals: 04:31 Log In Time: April 15, 2016 at 04:22. nn1 ED Course: 04:22 Patient visited by Ruth Edwards Reg. hs2 04:22 Patient moved to Waiting hs2 04:28 Triage Initiated nn1 04:43 Patient moved to [facility] [[email or web address]] rw1 04:45 Patient visited by Joao Banuelos. tr 04:46 Hung Lam MD is Attending Physician. pc 04:53 Patient visited by Hung Lam MD. pc 04:59 Dexter Palumbo LPN is Primary Nurse. rw1 05:00 Patient visited by Joao Banuelos. tr 05:25 Patient visited by Georgi Harris RN. mgs 05:30 Patient visited by Georgi Harris RN. mgs 05:30 Patient visited by Joao Banuelos. tr 05:47 Patient visited by Joao Banuelos. tr 05:48 Patient name changed from Joni\\S\\N\\S\\Kirkpatrick\\S\\ to Joni\\S\\Dave\\S\\Kirkpatrick. EDMS 05:48 [facility] Payment Agreement was scanned into [employer] and attached to record. pm4 05:50 [facility] is Referral Physician. pc 05:57 Patient visited by Joao Banuelos. tr 05:57 The patient / caregiver is instructed regarding the plan of care and ED course. rw1 05:57 No IV's were initiated during this patient's visit. No procedures done that require rw1 assistance. Order Results: There are currently no results for this order. Outcome: 05:50 Discharge ordered by Provider. pc 05:57 Discharge Assessment: Patient awake, alert and oriented x 3. No cognitive and/or rw1 functional deficits noted. Patient verbalized understanding of disposition instructions. patient administered narcotics - no. The following High Risk Discharge criteria are identified: None. Condition: stable. Discharge instructions given to patient, Instructed on discharge instructions, follow up and referral plans. Demonstrated understanding of instructions, Pt was receptive of discharge instructions/ teaching. No special radiology studies were completed. Property sent home with patient. 05:59 Patient left the ED. rw1 Signatures: Dispatcher [employer] EDHung Hankins MD MD pc Rasmussen, Tim tr Workman, Robert,[place] HISTORIAN rw1 Laura Mahan, CHERIE PSA violetb Georgi Harris,RN RN s Cortes LynnRN RN nn1 Ruth Edwards, Reg Reg hs2 Terrance Schaefer, Reg Reg pm4 MTDD
--- NOTE | 2016-04-15 06:00 | EDDOCDS ---
Physician Documentation [facility] Name: Joni Kirkpatrick Age: 40 yrs Sex: Male : 1975 Arrival Date: 04/15/2016 Time: 04:20 Bed BHU1 Private MD: Disposition: 04/15 05:49 Critical Care: Critical care not applicable. pc Disposition: 04/15/16 05:50 Discharged to Home/Self Care. Impression: Insomnia. - Condition is Stable. - Discharge Instructions: Insomnia. - Medication Reconciliation, Local Pharmacy Hours form. - Follow up: [facility]; When: Call to arrange an appointment; Reason: Continuance of care. - Problem is an ongoing problem. - Symptoms are unchanged. HPI: 04:53 This 40 yrs old Male presents to ER via Walkin/Carried/Asstd with complaints pc of Psych Problem. 04:53 The history is obtained from the patient. The patient presents to the emergency pc department with anxiety, insomnia. He has chronic anxiety and insomnia and is not getting relief from his meds. He was seen here for the same 2 weeks ago and referred to Psychiatry. Historical: - Allergies: No known drug Allergies; - Home Meds: 1. paroxetine HCl 40 mg Oral tab 20 mg once daily has not taken x 2 days 2. trazodone 50 mg Oral tab 1 tab nightly 3. melatonin 10 mg Oral tab - PMHx: Anxiety; Insomnia; - PSHx: none; - The history from nurses notes was reviewed: and I agree with what is documented. - Social history: Smoking status: Patient states was never smoker of tobacco. No barriers to communication noted, The patient speaks fluent Chinese, Speaks appropriately for age. - : The pt / caregiver states he / she is not on anticoagulants. Home medication list is obtained from the patient. - Hospitalizations: : No recent hospitalization is reported. - Exposure Risk Screening:: None identified. - Immunization history:: All immunizations up-to-date. - Family history: Not pertinent. ROS: 04:55 All systems are negative except as listed. The psychiatric and neurological components pc are also addressed in the HPI. Exam: 04:55 General Appearance: alert, no acute distress. pc 04:55 ENT: ear, nose and throat normal, pharynx normal. 04:55 Eyes: pupils equal, round and reactive to light, extraocular motions intact. 04:55 Neck: The exam reveals no acute abnormalities. ROM is normal and painless. No nuchal rigidity is noted.. 04:55 Respiratory: breathing is even and unlabored, breath sounds are normal. 04:55 Cardiovascular: regular pulse rate, regular heart rhythm, normal heart sounds, equal and full pulses bilaterally. 04:55 Abdomen: soft, non-tender, no organomegaly, normal bowel sounds. 04:55 Skin: skin color is normal, warm, dry. 04:55 Extremities: The extremities have a grossly normal appearance. 04:55 Neuro: alert, oriented to person, place and time, cranial nerves normal as tested, no motor deficits, no sensory deficits. 04:55 Psych: mood is normal, affect is appropriate. Vital Signs: 04:31 BP 135 / 94; Pulse 68; Resp 18; Temp 96.1; Pulse Ox 100% on R/A; Weight 77.56 kg / nn1 170.99 lbs; Height 5 ft. 10 in. (177.80 cm); Pain 0/10; 05:57 BP 124 / 91; Pulse 78; Resp 16; Temp 96.8(T); Pulse Ox 98% on R/A; Pain 0/10; rw1 04:31 Body Mass Index 24.54 (77.56 kg, 177.80 cm) nn1 MDM: 04:55 Differential diagnosis: chronic anxiety and insomnia. Plan: PFs eval. pc 05:40 Financial registration complete. pm4 05:48 [facility] Payment Agreement was scanned into [employer] and attached to record. pm4 05:49 The patient has been medically cleared for psychiatric evaluation, admission and/or pc transfer. [place]: [place] was not completed because the patient did not display any suicidal or homicidal ideation and was not considered a risk to self or others. Data reviewed: old medical records, vital signs, nurses notes. Test interpretation: none. The patient has been re-examined and re-evaluated. The clinical presentation did not require any ED treatment or interventions. Other consultation: The ED charhouse worker was notified and will evaluate the patient. 05:49 Disposition: The historical points, examination findings, and any diagnostic results pc supporting the provided diagnosis, were discussed with the patient or legal guardian. The need for outpatient follow up with the provider listed on their discharge instructions was discussed. They were encouraged to return to [facility], or the nearest ED, if symptoms worsen/persist, or for any other questions/concerns. Signatures: Hung Lam MD MD pc Workman, Robert, LPN MACHINE I ENGRAVER rw1 Cortes Lynn RN RN nn1 Terrance Schaefer, Reg Reg pm4 The chart was reviewed and I authenticate all verbal orders and agree with the evaluation and treatment provided.Corrections: (The following items were deleted from the chart) 04:56 04:53 He has chronic anxiety and insomnia and is not getting relief from his meds. pc pc Attachments: 05:48 [facility] Payment Agreement pm4 MTDD
--- NOTE | 2016-04-17 07:00 | EDDOCDS ---
Physician Documentation [facility] Name: Joni Kirkpatrick Age: 40 yrs Sex: Male : 1975 Arrival Date: 04/15/2016 Time: 04:20 Bed BHU1 Private MD: Disposition: 04/15 05:49 Critical Care: Critical care not applicable. pc Disposition: 04/15/16 05:50 Discharged to Home/Self Care. Impression: Insomnia. - Condition is Stable. - Discharge Instructions: Insomnia. - Medication Reconciliation, Local Pharmacy Hours form. - Follow up: [facility]; When: Call to arrange an appointment; Reason: Continuance of care. - Problem is an ongoing problem. - Symptoms are unchanged. HPI: 04:53 This 40 yrs old Male presents to ER via Walkin/Carried/Asstd with complaints pc of Psych Problem. 04:53 The history is obtained from the patient. The patient presents to the emergency pc department with anxiety, insomnia. He has chronic anxiety and insomnia and is not getting relief from his meds. He was seen here for the same 2 weeks ago and referred to Psychiatry. Historical: - Allergies: No known drug Allergies; - Home Meds: 1. paroxetine HCl 40 mg Oral tab 20 mg once daily has not taken x 2 days 2. trazodone 50 mg Oral tab 1 tab nightly 3. melatonin 10 mg Oral tab - PMHx: Anxiety; Insomnia; - PSHx: none; - The history from nurses notes was reviewed: and I agree with what is documented. - Social history: Smoking status: Patient states was never smoker of tobacco. No barriers to communication noted, The patient speaks fluent Guatemalan, Speaks appropriately for age. - : The pt / caregiver states he / she is not on anticoagulants. Home medication list is obtained from the patient. - Hospitalizations: : No recent hospitalization is reported. - Exposure Risk Screening:: None identified. - Immunization history:: All immunizations up-to-date. - Family history: Not pertinent. ROS: 04:55 All systems are negative except as listed. The psychiatric and neurological components pc are also addressed in the HPI. Exam: 04:55 General Appearance: alert, no acute distress. pc 04:55 ENT: ear, nose and throat normal, pharynx normal. 04:55 Eyes: pupils equal, round and reactive to light, extraocular motions intact. 04:55 Neck: The exam reveals no acute abnormalities. ROM is normal and painless. No nuchal rigidity is noted.. 04:55 Respiratory: breathing is even and unlabored, breath sounds are normal. 04:55 Cardiovascular: regular pulse rate, regular heart rhythm, normal heart sounds, equal and full pulses bilaterally. 04:55 Abdomen: soft, non-tender, no organomegaly, normal bowel sounds. 04:55 Skin: skin color is normal, warm, dry. 04:55 Extremities: The extremities have a grossly normal appearance. 04:55 Neuro: alert, oriented to person, place and time, cranial nerves normal as tested, no motor deficits, no sensory deficits. 04:55 Psych: mood is normal, affect is appropriate. Vital Signs: 04:31 BP 135 / 94; Pulse 68; Resp 18; Temp 96.1; Pulse Ox 100% on R/A; Weight 77.56 kg / nn1 170.99 lbs; Height 5 ft. 10 in. (177.80 cm); Pain 0/10; 05:57 BP 124 / 91; Pulse 78; Resp 16; Temp 96.8(T); Pulse Ox 98% on R/A; Pain 0/10; rw1 04:31 Body Mass Index 24.54 (77.56 kg, 177.80 cm) nn1 MDM: 04:55 Differential diagnosis: chronic anxiety and insomnia. Plan: PFs eval. pc 05:40 Financial registration complete. pm4 05:48 [facility] Payment Agreement was scanned into [employer] and attached to record. pm4 05:49 The patient has been medically cleared for psychiatric evaluation, admission and/or pc transfer. [place]: [place] to [place] was not completed because the patient did not display any suicidal or homicidal ideation and was not considered a risk to self or others. Data reviewed: old medical records, vital signs, nurses notes. Test interpretation: none. The patient has been re-examined and re-evaluated. The clinical presentation did not require any ED treatment or interventions. Other consultation: The ED hot mill worker was notified and will evaluate the patient. 05:49 Disposition: The historical points, examination findings, and any diagnostic results pc supporting the provided diagnosis, were discussed with the patient or legal guardian. The need for outpatient follow up with the provider listed on their discharge instructions was discussed. They were encouraged to return to [facility], or the nearest ED, if symptoms worsen/persist, or for any other questions/concerns. Signatures: Hung Lam MD MD pc Workman, Robert, LPN HORSE BREAKER rw1 Cortes Lynn RN RN nn1 Terrance Schaefer, Reg Reg pm4 The chart was reviewed and I authenticate all verbal orders and agree with the evaluation and treatment provided.Corrections: (The following items were deleted from the chart) 04:56 04:53 He has chronic anxiety and insomnia and is not getting relief from his meds. pc kassidy Attachments: 05:48 [facility] Payment Agreement pm4 Chart Complete MTDD
--- NOTE | 2016-04-17 07:00 | EDDOCDS ---
Physician Documentation [facility] Name: Joni Kirkpatrick Age: 40 yrs Sex: Male : 1975 Arrival Date: 04/15/2016 Time: 04:20 Bed BHU1 Private MD: Disposition: 04/15 05:49 Critical Care: Critical care not applicable. pc Disposition: 04/15/16 05:50 Discharged to Home/Self Care. Impression: Insomnia. - Condition is Stable. - Discharge Instructions: Insomnia. - Medication Reconciliation, Local Pharmacy Hours form. - Follow up: [facility]; When: Call to arrange an appointment; Reason: Continuance of care. - Problem is an ongoing problem. - Symptoms are unchanged. HPI: 04:53 This 40 yrs old Male presents to ER via Walkin/Carried/Asstd with complaints pc of Psych Problem. 04:53 The history is obtained from the patient. The patient presents to the emergency pc department with anxiety, insomnia. He has chronic anxiety and insomnia and is not getting relief from his meds. He was seen here for the same 2 weeks ago and referred to Psychiatry. Historical: - Allergies: No known drug Allergies; - Home Meds: 1. paroxetine HCl 40 mg Oral tab 20 mg once daily has not taken x 2 days 2. trazodone 50 mg Oral tab 1 tab nightly 3. melatonin 10 mg Oral tab - PMHx: Anxiety; Insomnia; - PSHx: none; - The history from nurses notes was reviewed: and I agree with what is documented. - Social history: Smoking status: Patient states was never smoker of tobacco. No barriers to communication noted, The patient speaks fluent Bangladeshi, Speaks appropriately for age. - : The pt / caregiver states he / she is not on anticoagulants. Home medication list is obtained from the patient. - Hospitalizations: : No recent hospitalization is reported. - Exposure Risk Screening:: None identified. - Immunization history:: All immunizations up-to-date. - Family history: Not pertinent. ROS: 04:55 All systems are negative except as listed. The psychiatric and neurological components pc are also addressed in the HPI. Exam: 04:55 General Appearance: alert, no acute distress. pc 04:55 ENT: ear, nose and throat normal, pharynx normal. 04:55 Eyes: pupils equal, round and reactive to light, extraocular motions intact. 04:55 Neck: The exam reveals no acute abnormalities. ROM is normal and painless. No nuchal rigidity is noted.. 04:55 Respiratory: breathing is even and unlabored, breath sounds are normal. 04:55 Cardiovascular: regular pulse rate, regular heart rhythm, normal heart sounds, equal and full pulses bilaterally. 04:55 Abdomen: soft, non-tender, no organomegaly, normal bowel sounds. 04:55 Skin: skin color is normal, warm, dry. 04:55 Extremities: The extremities have a grossly normal appearance. 04:55 Neuro: alert, oriented to person, place and time, cranial nerves normal as tested, no motor deficits, no sensory deficits. 04:55 Psych: mood is normal, affect is appropriate. Vital Signs: 04:31 BP 135 / 94; Pulse 68; Resp 18; Temp 96.1; Pulse Ox 100% on R/A; Weight 77.56 kg / nn1 170.99 lbs; Height 5 ft. 10 in. (177.80 cm); Pain 0/10; 05:57 BP 124 / 91; Pulse 78; Resp 16; Temp 96.8(T); Pulse Ox 98% on R/A; Pain 0/10; rw1 04:31 Body Mass Index 24.54 (77.56 kg, 177.80 cm) nn1 MDM: 04:55 Differential diagnosis: chronic anxiety and insomnia. Plan: PFs eval. pc 05:40 Financial registration complete. pm4 05:48 [facility] Payment Agreement was scanned into [employer] and attached to record. pm4 05:49 The patient has been medically cleared for psychiatric evaluation, admission and/or pc transfer. [place]: [place] was not completed because the patient did not display any suicidal or homicidal ideation and was not considered a risk to self or others. Data reviewed: old medical records, vital signs, nurses notes. Test interpretation: none. The patient has been re-examined and re-evaluated. The clinical presentation did not require any ED treatment or interventions. Other consultation: The ED health care social worker was notified and will evaluate the patient. 05:49 Disposition: The historical points, examination findings, and any diagnostic results pc supporting the provided diagnosis, were discussed with the patient or legal guardian. The need for outpatient follow up with the provider listed on their discharge instructions was discussed. They were encouraged to return to [facility], or the nearest ED, if symptoms worsen/persist, or for any other questions/concerns. Signatures: Hung Lam MD MD pc Workman, Robert, LPN FRUIT HARVEST WORKER rw1 Cortes Lynn RN RN nn1 Terrance Schaefer, Reg Reg pm4 The chart was reviewed and I authenticate all verbal orders and agree with the evaluation and treatment provided.Corrections: (The following items were deleted from the chart) 04:56 04:53 He has chronic anxiety and insomnia and is not getting relief from his meds. pc kassidy Attachments: 05:48 [facility] Payment Agreement pm4 Chart Complete MTDD
--- NOTE | 2016-04-17 07:00 | EDDOCDS ---
Nurse's Notes [facility] Name: Joni Kirkpatrick Age: 40 yrs Sex: Male : 1975 Arrival Date: 04/15/2016 Time: 04:20 Bed [facility] Private MD: Diagnosis: Insomnia Presentation: 04/15 04:26 Presenting complaint: Patient states: he is feeling very shaky and sick. Reports nn1 insomnia x 3 weeks, seen in ED 1 week ago. Patient given trazodone by PCP, reports no sleep. Patient also prescribed Paxil for anxiety but states it keeps him awake at night so he stopped taking it, has not had x 2 days. Adult Sepsis Screening: The patient does not have new or worsening altered mentation. Patient's respiratory rate is less than 22. Systolic blood pressure is greater than 100. Patient has a qSOFA score of 0- Negative Sepsis Screen. Suicide/Homicide risk assessment- the patient denies having any suicidal and/or homicidal ideations and does not present with any other emotional, behavioral or mental health complaints. Status: Patient is not a director of student financial services or dependent. Transition of care: patient was not received from another setting of care. 04:26 Acuity: TERESA Level 4 nn1 04:26 Method Of Arrival: Walkin/Carried/Asstd nn1 Triage Assessment: 04:30 General: Appears in no apparent distress, Behavior is appropriate for age, cooperative. nn1 General: States he feels shaky and nauseous. . Pain: Denies pain. HIV screening NA for this visit Offered previously. Neurological: Level of Consciousness is awake, alert, Oriented to person, place, time. GI: Reports nausea. Derm: Skin is pink, warm & dry. Historical: - Allergies: No known drug Allergies; - Home Meds: 1. paroxetine HCl 40 mg Oral tab 20 mg once daily has not taken x 2 days 2. trazodone 50 mg Oral tab 1 tab nightly 3. melatonin 10 mg Oral tab - PMHx: Anxiety; Insomnia; - PSHx: none; - The history from nurses notes was reviewed: and I agree with what is documented. - Social history: Smoking status: Patient states was never smoker of tobacco. No barriers to communication noted, The patient speaks fluent Romanian, Speaks appropriately for age. - : The pt / caregiver states he / she is not on anticoagulants. Home medication list is obtained from the patient. - Hospitalizations: : No recent hospitalization is reported. - Exposure Risk Screening:: None identified. - Immunization history:: All immunizations up-to-date. - Family history: Not pertinent. Screenin:24 Screening information is obtained from the patient. Fall risk: No risks identified. mgs Assistance ADL's: requires no assistance with activities of daily living. Abuse/DV Screen: The patient / caregiver reports he/she is: not in a situation that causes fear, pain or injury. Nutritional screening: No deficits noted. Advance Directives: Currently, there is no health care proxy. There is no active DNR order. home support is adequate. Assessment: 04:30 General: see triage assessment. rw1 05:23 General: Appears in no apparent distress, Behavior is appropriate for age, cooperative. mgs Neurological: Level of Consciousness is awake, alert, Oriented to person, place, time. Cardiovascular: Capillary refill < 3 seconds Heart tones S1 S2 present Pulses are 2+ in right radial artery and left radial artery. Respiratory: Airway is patent Respiratory effort is even, unlabored, Respiratory pattern is regular, symmetrical. Derm: Skin is pink, warm & dry. Social Work Consult: 05:21 Social Work Note: PT was seen here 03/31 for similar complaint and he followed up with rigoberto his provider via [facility]. He was prescribed Trazadone 50-100 mg HS and Paxil 20mg daily. PT states the Trazadone had no beneficial effect and he is choosing not to take the Paxil as he does not wish to be on a retirement med as he is hopeful the spike with his anxiety is related to his recent insomnia. PT states he had a similar situation after his father and it resolved but this time "This is going into the 4th week and I can't keep doing this to my family" currently PT and are sleeping separately in their home due to his insomnia interrupting her sleep. PT denies SI/HI or hallucinations. PT states he will call or go see his provider when the [facility] and he will discuss the lack of benefit the current medications have provided. Status: Retired. Vital Signs: 04:31 BP 135 / 94; Pulse 68; Resp 18; Temp 96.1; Pulse Ox 100% on R/A; Weight 77.56 kg; nn1 Height 5 ft. 10 in. (177.80 cm); Pain 0/10; 05:57 BP 124 / 91; Pulse 78; Resp 16; Temp 96.8(T); Pulse Ox 98% on R/A; Pain 0/10; rw1 04:31 Body Mass Index 24.54 (77.56 kg, 177.80 cm) nn1 Vitals: 04:31 Log In Time: April 15, 2016 at 04:22. nn1 ED Course: 04:22 Patient visited by Ruth Edwards Reg. hs2 04:22 Patient moved to Waiting hs2 04:28 Triage Initiated nn1 04:43 Patient moved to [facility] rw1 04:45 Patient visited by Joao Banuelos. tr 04:46 Hung Lam MD is Attending Physician. pc 04:53 Patient visited by Hung Lam MD. pc 04:59 Dexter Palumbo LPN is Primary Nurse. rw1 05:00 Patient visited by Joao Banuelos. tr 05:25 Patient visited by Georgi Harris RN. mgs 05:30 Patient visited by Georgi Harris RN. mgs 05:30 Patient visited by Joao Banuelos. tr 05:47 Patient visited by Joao Banuelos. tr 05:48 Patient name changed from Joni\\S\\N\\S\\Kirkpatrick\\S\\ to Joni\\S\\Dave\\S\\Kirkpatrick. EDMS 05:48 [facility] Payment Agreement was scanned into [employer] and attached to record. pm4 05:50 [facility] is Referral Physician. pc 05:57 Patient visited by Joao Banuelos. tr 05:57 The patient / caregiver is instructed regarding the plan of care and ED course. rw1 05:57 No IV's were initiated during this patient's visit. No procedures done that require rw1 assistance. Order Results: There are currently no results for this order. Outcome: 05:50 Discharge ordered by Provider. pc 05:57 Discharge Assessment: Patient awake, alert and oriented x 3. No cognitive and/or rw1 functional deficits noted. Patient verbalized understanding of disposition instructions. patient administered narcotics - no. The following High Risk Discharge criteria are identified: None. Condition: stable. Discharge instructions given to patient, Instructed on discharge instructions, follow up and referral plans. Demonstrated understanding of instructions, Pt was receptive of discharge instructions/ teaching. No special radiology studies were completed. Property sent home with patient. 05:59 Patient left the ED. rw1 Signatures: Dispatcher [employer] EDHung Hankins MD MD pc Rasmussen, Tim tr Workman, Robert,TRANSITION PROGRAM MANAGER TRANSITION PROGRAM MANAGER rw1 Laura Mahan, PSA PSA violetb Georgi Harris,RN RN s Cortes LynnRN RN nn1 Ruth Edwards, Reg Reg hs2 Terrance Schaefer, Reg Reg pm4 Chart Complete MTDD
== END 2016-04-15 05:59 | disposition home or self-care (01) ==
LOC: M ED 04:20
DX: G47.00 Insomnia, unspecified (principal); F41.9 Anxiety disorder, unspecified; Z79.899 Other long term (current) drug therapy

== ENCOUNTER 2017-06-03 20:17 | Emergency (ER) | payer OTHER, MEDICAID ==
[2017-06-03] MEDS: KETOROLAC 30 MG/ML VIAL (J1885) IV (21:42)
[2017-06-03 22:02] LABS: BASO # 0.1 10^3/uL (0.0-0.2); BASO % 0.8 % (0.0-1.0); EOS # 0.1 10^3/uL (0.0-0.50); EOS % 0.9 % (0.0-3.0); HEMATOCRIT 47.1 % (42.0-52.0); HEMOGLOBIN 16.6 g/dl (13.5-17.5); IMMATURE GRANULOCYTE % 0.5 % (0-3.0); LYMPH # 2.2 10^3/uL (1.5-4.5); LYMPH % 35.3 % (24.0-44.0); MEAN CORPUSCULAR HGB CONC 35.2 g/dl (32.0-36.5); MONO # 0.6 10^3/uL (0.0-0.8); MONO % 9.3 % (0.0-5.0); NEUTROPHILS # 3.4 10^3/uL (1.8-7.7); NEUTROPHILS % 53.2 % (36.0-66.0); PLATELET COUNT, AUTOMATED 243 10^3/uL (150-450); RED BLOOD COUNT 5.35 10^6/uL (4.30-6.10); RED CELL DISTRIBUTION WIDTH 11.6 % (11.5-14.5); WHITE BLOOD COUNT 6.3 10^3/uL (4.0-10.0)
[2017-06-03 22:05] LABS: ANION GAP 6 MEQ/L (8-16); BLOOD UREA NITROGEN 10 MG/DL (7-18); CALCIUM LEVEL 9.6 MG/DL (8.5-10.1); CARBON DIOXIDE LEVEL 28 MEQ/L (21-32); CHLORIDE LEVEL 107 MEQ/L (98-107); CREATININE FOR GFR 1.17 MG/DL (0.70-1.30); GLOMERULAR FILTRATION RATE > 60.0 (>60); GLUCOSE, FASTING 87 MG/DL (70-100); POTASSIUM SERUM 4.4 MEQ/L (3.5-5.1); SODIUM LEVEL 141 MEQ/L (136-145)
[2017-06-03] MEDS ORDERED: ISOVUE-370 76% 100ML VIAL (Q9967) As Ordered (22:15)
[2017-06-03 22:38] LABS: CK-MB VALUE MASS < 1.0 NG/ML (<3.6); CPK CREATINE PHOSPHOKINASE 96 U/L (39-308); MB/CK RELATIVE INDEX 1.04 (< OR =4); TROPONIN I < 0.02 NG/ML (< 0.10)
== END 2017-06-03 23:19 | disposition home or self-care (01) ==
LOC: M ED 20:17
DX: R07.9 Chest pain, unspecified (principal); J34.89 Other specified disorders of nose and nasal sinuses; R51 Headache; F41.9 Anxiety disorder, unspecified; Z79.899 Other long term (current) drug therapy; Z79.2 Long term (current) use of antibiotics
CPT/HCPCS: Q9967

== ENCOUNTER → 2017-06-28 | Outpatient (REF) | payer MEDICAID | LOC: M LAB REF 17:03 | DX: J32.4 Chronic pansinusitis (principal) ==

== ENCOUNTER 2017-07-21 19:41 | Emergency (ER) | payer OTHER, MEDICAID | END 2017-07-21 20:48 | disposition left against medical advice (07) | LOC: M ED 19:41 | DX: Z53.29 Procedure and treatment not carried out because of patient's decision for other reasons (principal) ==

== ENCOUNTER 2017-07-24 21:50 | Inpatient (IN) | payer MEDICAID, OTHER ==
[2017-07-24 23:22] LABS: HEMATOCRIT 41.8 % (42.0-52.0); HEMOGLOBIN 14.2 g/dl (13.5-17.5); MEAN CORPUSCULAR HEMOGLOBIN 30.3 pg (27.0-33.0); MEAN CORPUSCULAR VOLUME 89.3 fl (80.0-96.0); PLATELET COUNT, AUTOMATED 302 10^3/uL (150-450); RED BLOOD COUNT 4.68 10^6/uL (4.30-6.10); RED CELL DISTRIBUTION WIDTH 11.9 % (11.5-14.5); WHITE BLOOD COUNT 10.1 10^3/uL (4.0-10.0)
[2017-07-24] MEDS: IBUPROFEN 600 MG TAB PO (23:24)
[2017-07-24 23:45] LABS: AMPHETAMINES LEVEL URINE NEGATIVE (NEGATIVE); BARBITURATES URINE NEGATIVE (NEGATIVE); BENZODIAZEPINES URINE NEGATIVE (NEGATIVE); CANNABINOIDS URINE NEGATIVE (NEGATIVE); COCAINE METABOLITE URINE NEGATIVE (NEGATIVE); METHADONE URINE NEGATIVE (NEGATIVE); OPIATES URINE NEGATIVE (NEGATIVE); PHENCYCLIDINE URINE NEGATIVE (NEGATIVE)
[2017-07-24 23:51] LABS: ACETAMINOPHEN LEVEL < 2.0 UG/ML (10.0-30.0); ALBUMIN 4.2 GM/DL (3.2-5.2); ALBUMIN/GLOBULIN RATIO 1.45 (1.00-1.93); ALKALINE PHOSPHATASE 66 U/L (45-117); ALT/SGPT 22 U/L (12-78); ANION GAP 7 MEQ/L (8-16); AST/SGOT 14 U/L (7-37); BILIRUBIN,DIRECT 0.1 MG/DL (0.0-0.2); BILIRUBIN,TOTAL 0.4 MG/DL (0.2-1.0); BLOOD UREA NITROGEN 9 MG/DL (7-18); CALCIUM LEVEL 9.5 MG/DL (8.5-10.1); CARBON DIOXIDE LEVEL 25 MEQ/L (21-32); CHLORIDE LEVEL 108 MEQ/L (98-107); CREATININE FOR GFR 0.96 MG/DL (0.70-1.30); GLOMERULAR FILTRATION RATE > 60.0 (>60); GLUCOSE, FASTING 100 MG/DL (70-100); SALICYLATE LEVEL < 1.7 MG/DL (5.0-30.0); SODIUM LEVEL 140 MEQ/L (136-145); TOTAL PROTEIN 7.1 GM/DL (6.4-8.2)
[2017-07-24 23:54] LABS: ETHYL ALCOHOL (ETHANOL) < 0.003 % (0.000-0.010)
[2017-07-25] MEDS ORDERED: MAALOX 30 ML SUSP *UDC PO (00:15)
[2017-07-25] MEDS ORDERED: MOM 30ML SUSPENSION UDC PO (00:15)
[2017-07-25] MEDS: LORazepam 1 MG TAB PO ×3 (02:01→16:57)
[2017-07-25] MEDS: SUMAtriptan SUCCINATE 25 MG TAB PO (02:01)
[2017-07-25] MEDS: traZODone 50 MG TAB PO ×2 (02:01→23:16)
[2017-07-25] MEDS: PERCOCET 5MG/325MG TAB PO (07:06)
[2017-07-25] MEDS ORDERED: LORazepam 1 MG TAB PO (09:00)
[2017-07-25] MEDS: methylPREDNISolone 4 MG TAB PO ×3 (10:51→18:04)
[2017-07-25] MEDS: ACETAMINOPHEN TAB 650MG DOSE (2X325MG) PO (13:07)
[2017-07-25] MEDS ORDERED: PILL CRUSHER/CUTTER 1 EACH XX (15:15)
[2017-07-25] MEDS: busPIRone 5 MG TAB PO ×2 (16:57→21:28)
[2017-07-25] MEDS: SODIUM CHLORIDE NASAL 0.65% SPRAY BTL (OCEAN) ×2 (18:07→21:07)
[2017-07-25] MEDS: IBUPROFEN 400 MG TAB PO (19:51)
[2017-07-25] MEDS: hydrOXYzine 50 MG TAB PO (20:42)
[2017-07-25] MEDS: BUPRENORPHINE/NALOXONE 2-0.5MG SUBLINGUAL TABLET(SUBOXONE) SL (21:28)
[2017-07-26] MEDS: SODIUM CHLORIDE NASAL 0.65% SPRAY BTL (OCEAN) ×2 (07:44→17:03)
[2017-07-26] MEDS: methylPREDNISolone 4 MG TAB PO ×2 (08:31→17:57)
[2017-07-26] MEDS: busPIRone 5 MG TAB PO ×3 (08:31→20:42)
[2017-07-26] MEDS: BUPRENORPHINE/NALOXONE 2-0.5MG SUBLINGUAL TABLET(SUBOXONE) SL (08:31)
[2017-07-26] MEDS: LORazepam 1 MG TAB PO (08:32)
[2017-07-26] MEDS: IBUPROFEN 400 MG TAB PO (17:05)
[2017-07-26] MEDS: hydrOXYzine 50 MG TAB PO (18:14)
[2017-07-26] MEDS ORDERED: OLANZapine 5 MG TAB PO (21:00)
[2017-07-26] MEDS ORDERED: OLANZapine ORAL DISINTEGRATING TAB 5MG As Ordered (21:08)
[2017-07-26] MEDS: cloNIDine 0.1 MG TAB PO (21:19)
[2017-07-26] MEDS: OLANZapine ORAL DISINTEGRATING TAB 5MG PO (21:19)
[2017-07-26] MEDS: traZODone 50 MG TAB PO (22:56)
[2017-07-27] MEDS: busPIRone 5 MG TAB PO (08:35)
[2017-07-27] MEDS: methylPREDNISolone 4 MG TAB PO (08:36)
[2017-07-27] MEDS: SODIUM CHLORIDE NASAL 0.65% SPRAY BTL (OCEAN) (10:11)
== END 2017-07-27 11:43 | disposition home or self-care (01) | DRG 880 ==
LOC: M ED INP 07-25 00:13 → M PSY 07-25 01:08 → M ED 21:50
DX: F41.1 Generalized anxiety disorder (principal); F43.23 Adjustment disorder with mixed anxiety and depressed mood; F11.90 Opioid use, unspecified, uncomplicated; F13.90 Sedative, hypnotic, or anxiolytic use, unspecified, uncomplicated; G47.00 Insomnia, unspecified; M54.5 Low back pain; G43.909 Migraine, unspecified, not intractable, without status migrainosus; Z79.899 Other long term (current) drug therapy

== ENCOUNTER → 2017-08-31 | Outpatient (CLI) | payer OTHER | LOC: M RAD 12:26 | DX: G43.709 Chronic migraine without aura, not intractable, without status migrainosus (principal) | CPT/HCPCS: 93880 ==

== ENCOUNTER → 2017-08-31 | Outpatient (CLI) | payer OTHER | LOC: M RAD 12:22 | DX: R51 Headache (principal) | CPT/HCPCS: 70551 ==

== ENCOUNTER 2018-03-02 14:33 | Emergency (ER) | payer OTHER ==
[~2018-03-02] VITALS: Ht 177.8 cm; Wt 81.8 kg
[~2018-03-02 14:33] MED LIST changes: +ARIP5TA PO; +ATIV1TAB7 PO; +AUGM875T28 PO; +BUSP5TA PO; +HYDRO50TAB PO; +LOPR1TAB6 PO; +MEDR4PAK; +OCEA0.654; +PERC5TAB12 PO; +SUMA100T2 PO; -TRAZ50TA OR; +TRAZ50TA PO; +TRAZO50TA PO; +XANA1TAB2 PO
[2018-03-02] MEDS ORDERED: IBUP-1022 PO (16:40)
[2018-03-02 16:56] VITALS: BP 133/83
--- NOTE | 2018-03-02 16:59 | REP ---
Maxillofacial CT study without contrast: History: Sinus pain and pressure. Comparison is made with the MRI brain imaging from August 31, 2017. CT findings: There is a mucous retention cyst in the left maxillary sinus measuring 1.4 cm in diameter. A smaller mucous retention cyst is seen anteromedially in the right maxillary sinus. Mucosal changes in the maxillary sinuses are improved compared to the MRI study of August 31, 2017. The patient is status post nasoantral window procedure bilaterally. Nasal ethmoid recesses bullectomy has been performed as well. There is no significant mucosal thickening in the ethmoid sinuses, sphenoid sinuses or frontal sinuses. Nasal turbinate soft tissues are symmetric. No polyp is seen. Bony nasal septum is in the midline. No intraorbital abnormality or intracranial abnormality is seen. Impression: Postoperative changes. Mild mucosal changes persist in the maxillary sinuses. No acute abnormality. Electronically Signed by Arturo Rajan MD 03/02/2018 06:21 P
== END 2018-03-02 16:55 | disposition home or self-care (01) ==
LOC: M ED 14:33
DX: J34.89 Other specified disorders of nose and nasal sinuses (principal); F17.200 Nicotine dependence, unspecified, uncomplicated; Z79.899 Other long term (current) drug therapy

== ENCOUNTER 2018-03-07 23:38 | Emergency (ER) | payer OTHER ==
[~2018-03-07] VITALS: Ht 177.8 cm; Wt 81.8 kg
[~2018-03-07 23:38] MED LIST changes: +IBUP-1022 PO
[2018-03-08 00:26] LABS: PROTHROMBIN TIME 13.3 SECONDS (12.1-14.4)
[2018-03-08 00:27] LABS: PARTIAL THROMBOPLASTIN TIME 27.6 SECONDS (25.4-37.6)
[2018-03-08 00:39] LABS: BASO % 0.5 % (0.0-1.0); EOS # 0.1 10^3/uL (0.0-0.50); EOS % 0.8 % (0.0-3.0); HEMATOCRIT 47.2 % (42.0-52.0); HEMOGLOBIN 15.9 g/dl (13.5-17.5); LYMPH # 2.5 10^3/uL (1.5-4.5); LYMPH % 33.7 % (24.0-44.0); MEAN CORPUSCULAR HEMOGLOBIN 30.7 pg (27.0-33.0); MEAN CORPUSCULAR HGB CONC 33.7 g/dl (32.0-36.5); MEAN CORPUSCULAR VOLUME 91.1 fl (80.0-96.0); MONO # 0.6 10^3/uL (0.0-0.8); MONO % 8.4 % (0.0-5.0); NEUTROPHILS # 4.1 10^3/uL (1.8-7.7); NEUTROPHILS % 56.2 % (36.0-66.0); PLATELET COUNT, AUTOMATED 226 10^3/uL (150-450); RED BLOOD COUNT 5.18 10^6/uL (4.30-6.10); WHITE BLOOD COUNT 7.3 10^3/uL (4.0-10.0)
[2018-03-08] MEDS ORDERED: ASPIRIN 81 MG CHEW TABLET PO ONE (00:45)
[2018-03-08 00:51] LABS: ALBUMIN 3.8 GM/DL (3.2-5.2); ALT/SGPT 26 U/L (12-78); BILIRUBIN,DIRECT < 0.1 MG/DL (0.0-0.2); BILIRUBIN,TOTAL 0.4 MG/DL (0.2-1.0); BLOOD UREA NITROGEN 16 MG/DL (7-18); CALCIUM LEVEL 9.1 MG/DL (8.5-10.1); CARBON DIOXIDE LEVEL 26 MEQ/L (21-32); CHLORIDE LEVEL 107 MEQ/L (98-107); CK-MB VALUE MASS < 1.0 NG/ML (<3.6); CPK CREATINE PHOSPHOKINASE 82 U/L (39-308); CREATININE FOR GFR 1.16 MG/DL (0.70-1.30); FREE T4 1.01 NG/DL (0.76-1.46); GLOMERULAR FILTRATION RATE > 60.0 (>60); GLUCOSE, FASTING 81 MG/DL (70-100); LIPASE 105 U/L (73-393); MB/CK RELATIVE INDEX 1.22 (< OR =4); SODIUM LEVEL 140 MEQ/L (136-145); THYROID STIMULATING HORMONE 0.639 uIU/ML (0.358-3.740); TOTAL PROTEIN 6.6 GM/DL (6.4-8.2); TROPONIN I < 0.02 NG/ML (< 0.10)
[2018-03-08] MEDS ORDERED: ISOVUE-370 76% 100ML VIAL (Q9967) As Ordered ONE (01:17)
--- NOTE | 2018-03-08 02:06 | REPVR ---
EXAM: CT Angiography Chest With Contrast EXAM DATE/TIME: 03/08/2018 1:05 AM CLINICAL HISTORY: 42 years old, male; Pain; Chest pain; Type not specified; Additional info: Chest pain, SOB TECHNIQUE: Axial computed tomographic angiography images of the chest with intravenous contrast using CT angiography protocol. All CT scans at this facility use at least one of these dose optimization techniques: automated exposure control; mA and/or kV adjustment per patient size (includes targeted exams where dose is matched to clinical indication); or iterative reconstruction. Coronal and sagittal reformatted images were created and reviewed. MIP reconstructed images were created and reviewed. CONTRAST: 75 ml of iso administered intravenously. COMPARISON: CR Chest, 2 view PA, Lat 06/03/2017 9:19 PM FINDINGS: Pulmonary arteries: The main pulmonary artery measures 28 mm. No pulmonary embolism is identified. Aorta: The ascending thoracic aorta measures 33 mm. Lungs: Minimal dependent atelectasis. Pleural space: Normal. No pneumothorax. No pleural effusion. Heart: Normal. No cardiomegaly. No pericardial effusion. Gallbladder and bile ducts: The gallbladder is somewhat contracted with no stones. Lymph nodes: 2-3 mm subpleural nodule in the superior segment of the left lower lobe, probably a lymph node. Bones/joints: Unremarkable. No acute fracture. Soft tissues: Unremarkable. IMPRESSION: Negative CTA chest. No pulmonary embolism is identified. Electronically signed by: Jorge A Bowers On 03/08/2018 02:06:21 AM
[2018-03-08] MEDS ORDERED: AMOX500C PO (02:44)
[2018-03-08] MEDS ORDERED: AMOXICILLIN 500 MG CAP PO ONE (02:45)
[2018-03-08 02:53] VITALS: BP 132/80
--- NOTE | 2018-03-08 17:07 | ECGEPIP ---
Stationary ECG Study [facility] - ED Test Date: 2018-03-07 Pat Name: DORA VIDES Department: Room: - Gender: M Acetylene Cutter: [facility] : 1975 Requested By: JOSEPH Anna Order Number: [id number] Reading MD: Gianna Keller Measurements Intervals Agenda Rate: 52 P: 37 SC: 147 QRS: -7 QRSD: 92 T: 5 QT: 393 QTc: 367 Interpretive Statements SINUS BRADYCARDIA DECREASED RATE 06/03/17 Electronically Signed On 03-08-2018 17:07:07 EST by Gianna Keller
== END 2018-03-08 02:57 | disposition home or self-care (01) ==
LOC: M ED 23:38
DX: R06.02 Shortness of breath (principal)
CPT/HCPCS: 71275; 80048; 80076; 82550; 82553; 83690; 84439; 84443; 85025; 85610; 85730; 93005; 93041; 94760; 99284; Q9967

== ENCOUNTER 2018-04-03 09:18 | Day surgery (SDC) | payer OTHER ==
[~2018-04-03] VITALS: Ht 175.3 cm; Wt 80.7 kg
[~2018-04-03 09:18] MED LIST changes: +AMOX500C PO; +HYDR-3363 PO; +NS 1,000 ML IV ONE; +ZITHTAB PO
[2018-04-03] MEDS ORDERED: PROPOFOL 200 MG/20 ML VIAL As Ordered ONE ×3 (10:20→11:01)
[2018-04-03] MEDS ORDERED: fentaNYL 100 MCG/2 ML INJECTION (J3010) As Ordered ONE (10:39)
--- NOTE | 2018-04-03 11:40 | ROOR ---
Patient Name: Joni Kirkpatrick Procedure Date: 04/03/2018 11:22 AM Date of : 1975 Age: 42 Room: [facility] Gender: Male Note Status: Finalized Procedure: Upper Endoscopy + Biopsies Indications: Heartburn, Exclusion of Edwards's esophagus Providers: Jose Rafael Martinez MD Referring MD: ESDRAS ANGUIANO MD Requesting Provider: Medicines: Monitored Anesthesia Care Complications: No immediate complications. Procedure: Pre-Anesthesia Assessment: - The heart rate, respiratory rate, oxygen saturations, blood pressure, adequacy of pulmonary ventilation, and response to care were monitored throughout the procedure. The Endoscope was introduced through the mouth, and advanced to the second part of duodenum. The upper GI endoscopy was accomplished without difficulty. The patient tolerated the procedure well. Findings: The Z-line was irregular and was found 40 cm from the incisors. Multiple biopsies were obtained with cold forceps for evaluation to rule out Edwards's Esophagus randomly at the gastroesophageal junction. Localized mild inflammation characterized by congestion (edema) and erosions was found in the gastric antrum. Biopsies were taken with a cold forceps for Helicobacter pylori testing. The exam of the duodenum was otherwise normal. Impression: - Z-line irregular, 40 cm from the incisors. - Mucosal changes suspicious for gastritis. Biopsied. - Multiple biopsies were obtained at the gastroesophageal junction. - The examination was otherwise normal. Recommendation: - Patient has a contact number available for emergencies. The signs and symptoms of potential delayed complications were discussed with the patient. Return to normal activities tomorrow. Written discharge instructions were provided to the patient. - High fiber diet. - Discharge patient to home. - Resume previous diet. - Follow an antireflux regimen. - Continue present medications. - Await pathology results. - Telephone GI clinic for pathology results in 1 week. - Return to referring physician. - The findings and recommendations were discussed with the patient's family. Jose Rafael Martinez MD Jose Rafael Martinez MD 04/03/2018 11:39:53 AM This report has been signed electronically. Number of Addenda: 0 Note Initiated On: 04/03/2018 11:22 AM Estimated Blood Loss: Estimated blood loss: none.
--- NOTE | 2018-04-03 11:57 | ROOR ---
Patient Name: Joni Kirkpatrick Procedure Date: 04/03/2018 11:23 AM Date of : 1975 Age: 42 Room: [facility] Gender: Male Note Status: Finalized Procedure: Total Colonoscopy to Cecum + Cold Snare Polypectomy + Hemoclip Indications: Abdominal pain in the left lower quadrant, Rectal bleeding Providers: Jose Rafael Martinez MD Referring MD: ESDRAS ANGUIANO MD Requesting Provider: Medicines: Monitored Anesthesia Care Complications: No immediate complications. Procedure: Pre-Anesthesia Assessment: - The heart rate, respiratory rate, oxygen saturations, blood pressure, adequacy of pulmonary ventilation, and response to care were monitored throughout the procedure. The Colonoscope was introduced through the anus and advanced to the cecum, identified by appendiceal orifice and ileocecal valve. The colonoscopy was performed without difficulty. The patient tolerated the procedure well. The quality of the bowel preparation was excellent. Findings: The perianal and digital rectal examinations were normal. Non-bleeding internal hemorrhoids were found during retroflexion. The hemorrhoids were small and Grade I (internal hemorrhoids that do not prolapse). A small polyp was found in the ascending colon. The polyp was sessile. The polyp was removed with a cold snare. Resection and retrieval were complete. To prevent bleeding after the polypectomy, one hemostatic clip was successfully placed (MR conditional). There was no bleeding at the end of the procedure. The exam was otherwise without abnormality on direct and retroflexion views. Impression: - Non-bleeding internal hemorrhoids. - One small polyp in the ascending colon, removed with a cold snare. Resected and retrieved. Clip (MR conditional) was placed. - The examination was otherwise normal on direct and retroflexion views. - The exam was otherwise normal to the cecum. Recommendation: - Patient has a contact number available for emergencies. The signs and symptoms of potential delayed complications were discussed with the patient. Return to normal activities tomorrow. Written discharge instructions were provided to the patient. - High fiber diet. - Discharge patient to home. - Continue present medications. - Await pathology results. - Telephone GI clinic for pathology results in 1 week. - Repeat colonoscopy in 10 years for surveillance based on pathology results. - Return to referring physician. - Check Portal Online for Path Results.([email or web address]) - The findings and recommendations were discussed with the patient's family. Jose Rafael Martinez MD Jose Rafael Martinez MD 04/03/2018 11:57:04 AM This report has been signed electronically. Number of Addenda: 0 Note Initiated On: 04/03/2018 11:23 AM Estimated Blood Loss: Estimated blood loss: none.
[2018-04-03 12:00] VITALS: BP 112/67
== END 2018-04-03 12:31 | disposition home or self-care (01) ==
LOC: M OPP 09:18
PROVIDERS: ATTEND Internal Medicine Gastroenterology
DX: R10.32 Left lower quadrant pain (principal); K62.5 Hemorrhage of anus and rectum; R12 Heartburn; K63.5 Polyp of colon; K64.0 First degree hemorrhoids; K22.8 Other specified diseases of esophagus; K31.89 Other diseases of stomach and duodenum; Z79.899 Other long term (current) drug therapy
CPT/HCPCS: 43239; 45385; 88305; J3010

== ENCOUNTER 2018-05-14 22:22 | Emergency (ER) | payer OTHER ==
[~2018-05-14] VITALS: Ht 177.8 cm; Wt 79.5 kg
[~2018-05-14 22:22] MED LIST changes: -NS 1,000 ML IV ONE
[2018-05-14 22:23] VITALS: BP 130/86
[2018-05-14] MEDS ORDERED: LEXA1TAB (22:31)
[2018-05-14] MEDS ORDERED: KLON0.5T PO (22:31)
[2018-05-15] MEDS ORDERED: KETOROLAC TROMETHAMINE 10 MG TAB PO ONE (01:30)
--- NOTE | 2018-05-15 03:32 | REPVR ---
EXAM: CT Maxillofacial Without Contrast, Sinus EXAM DATE/TIME: 05/15/2018 1:30 AM CLINICAL HISTORY: 42 years old, male; Pain; Maxilla pain; Prior surgery; Surgery date: 6+ months; Additional info: Sinus surg <1yr, pain behind eyes/sinuses TECHNIQUE: CT Maxillofacial without intravenous contrast. Focus on the sinuses. All CT scans at this facility use at least one of these dose optimization techniques: automated exposure control; mA and/or kV adjustment per patient size (includes targeted exams where dose is matched to clinical indication); or iterative reconstruction. Coronal reformatted images were created and reviewed. COMPARISON: CT Maxilofacial w/out contrast 03/02/2018 3:58 PM FINDINGS: Frontal sinuses: Normal. No air-fluid levels. Ethmoid air cells: Normal. No air-fluid levels. Sphenoid sinuses: Normal. No air-fluid levels. Maxillary sinuses: Retention cysts in the bilateral maxillary sinuses. Nasal cavity/Septum: Unremarkable. Soft tissues: Unremarkable. Bones/joints: Stable postoperative changes. IMPRESSION: No significant interval change. Electronically signed by: Babatunde Decker On 05/15/2018 03:31:34 AM
[2018-05-15] MEDS ORDERED: AUGM875T28 PO (03:54)
[2018-05-15] MEDS ORDERED: SODIUM CHLORIDE NASAL 0.65% SPRAY BTL (OCEAN) ONE (04:00)
[2018-05-15] MEDS ORDERED: AUGMENTIN 875 MG TAB PO ONE (04:00)
== END 2018-05-15 05:06 | disposition left against medical advice (07) ==
LOC: M ED 22:22
DX: J01.00 Acute maxillary sinusitis, unspecified (principal); F32.9 Major depressive disorder, single episode, unspecified; J34.89 Other specified disorders of nose and nasal sinuses; Z79.899 Other long term (current) drug therapy

== ENCOUNTER 2018-06-10 01:25 | Emergency (ER) | payer OTHER ==
[~2018-06-10] VITALS: Ht 177.8 cm; Wt 75.0 kg
[~2018-06-10 01:25] MED LIST changes: +ARIP1TAB6 PO; -ARIP5TA PO; +KLON0.5T PO; +LEXA1TAB
[2018-06-10 04:14] VITALS: BP 117/85
== END 2018-06-10 04:18 | disposition home or self-care (01) ==
LOC: M ED 01:25
DX: F41.9 Anxiety disorder, unspecified (principal); Z87.891 Personal history of nicotine dependence

== ENCOUNTER 2018-10-28 16:02 | Emergency (ER) | payer MEDICAID, OTHER ==
[~2018-10-28] VITALS: Ht 177.8 cm; Wt 77.6 kg
[~2018-10-28 16:02] MED LIST changes: +HYDR1TAB33 PO; -HYDRO50TAB PO; +TRAZ1TAB10 PO; -TRAZO50TA PO
[2018-10-28 16:03] VITALS: BP 141/102
[2018-10-28] MEDS ORDERED: PARO15TA (16:16)
[2018-10-28] MEDS ORDERED: IBUP200T45 PO (16:16)
[2018-10-28] MEDS ORDERED: OXYC1TAB23 (16:16)
[2018-10-28] MEDS ORDERED: PERC5TAB12 PO (17:43)
[2018-10-28] MEDS ORDERED: NAPR-837 PO (17:45)
== END 2018-10-28 17:53 | disposition home or self-care (01) ==
LOC: M ED 16:02
DX: Z76.0 Encounter for issue of repeat prescription (principal); G89.29 Other chronic pain; J34.89 Other specified disorders of nose and nasal sinuses; F32.9 Major depressive disorder, single episode, unspecified; F41.9 Anxiety disorder, unspecified; Z79.899 Other long term (current) drug therapy

== ENCOUNTER 2019-01-01 00:36 | Emergency (ER) | payer MEDICAID, OTHER ==
[~2019-01-01] VITALS: Ht 177.8 cm; Wt 77.3 kg
[~2019-01-01 00:36] MED LIST changes: +IBUP200T45 PO; +NAPR-837 PO; +OXYC1TAB23; +PARO15TA
[2019-01-01 00:37] VITALS: BP 144/97
[2019-01-01] MEDS ORDERED: TRAZ-252 PO (00:42)
== END 2019-01-01 01:25 | disposition left against medical advice (07) ==
LOC: M ED 00:36
DX: Z76.0 Encounter for issue of repeat prescription (principal); F11.90 Opioid use, unspecified, uncomplicated; F32.9 Major depressive disorder, single episode, unspecified; F41.9 Anxiety disorder, unspecified; Z87.891 Personal history of nicotine dependence; Z79.899 Other long term (current) drug therapy

== ENCOUNTER 2019-08-22 17:58 | Emergency (ER) | payer OTHER ==
[~2019-08-22] VITALS: Ht 177.8 cm; Wt 85.0 kg
[~2019-08-22 17:58] MED LIST changes: -PARO15TA; +PARO30TA4 PO; +TRAZ-252 PO
[2019-08-22 17:59] VITALS: BP 134/90
[2019-08-22] MEDS ORDERED: NS 1,000 ML IV ONE (20:15)
[2019-08-22] MEDS ORDERED: KETOROLAC 30 MG/ML 1ML VIAL IV ONE (20:30)
[2019-08-22 20:33] LABS: BASO # 0.1 10^3/uL (0.0-0.2); BASO % 0.7 % (0.0-1.0); EOS # 0.1 10^3/uL (0.0-0.5); EOS % 0.8 % (0.0-3.0); HEMATOCRIT 43.4 % (42.0-52.0); HEMOGLOBIN 14.9 g/dl (13.5-17.5); LYMPH # 2.5 10^3/uL (1.5-5.0); LYMPH % 34.7 % (24.0-44.0); MEAN CORPUSCULAR HEMOGLOBIN 31.2 pg (27.0-33.0); MEAN CORPUSCULAR HGB CONC 34.3 g/dl (32.0-36.5); MEAN CORPUSCULAR VOLUME 90.8 fl (80.0-96.0); MONO # 0.7 10^3/uL (0.0-0.8); MONO % 9.4 % (0.0-5.0); NEUTROPHILS # 3.8 10^3/uL (1.5-8.5); PLATELET COUNT, AUTOMATED 252 10^3/uL (150-450); RED BLOOD COUNT 4.78 10^6/uL (4.30-6.10); WHITE BLOOD COUNT 7.1 10^3/uL (4.0-10.0)
[2019-08-22 20:51] LABS: BLOOD UREA NITROGEN 12 MG/DL (7-18); C REACTIVE PROTEIN QUANTITATIV < 0.30 MG/DL (0.00-0.30); CALCIUM LEVEL 9.4 MG/DL (8.5-10.1); CARBON DIOXIDE LEVEL 23 MEQ/L (21-32); CHLORIDE LEVEL 110 MEQ/L (98-107); CREATININE FOR GFR 1.25 MG/DL (0.70-1.30); GLOMERULAR FILTRATION RATE > 60.0 (>60); GLUCOSE, FASTING 99 MG/DL (70-100); POTASSIUM SERUM 4.1 MEQ/L (3.5-5.1); SODIUM LEVEL 138 MEQ/L (136-145)
[2019-08-22] MEDS ORDERED: ceFAZolin SOD 2 GM in IV 1 EA IV ONE (21:00)
[2019-08-22 21:05] LABS: ERYTHROCYTE SEDIMENTATION RATE 2 mm/hr (0-15)
[2019-08-22] MEDS ORDERED: PAXI30TA11 PO (21:12)
[2019-08-22] MEDS ORDERED: NORC1TAB7 PO (21:12)
[2019-08-22] MEDS ORDERED: PERCOCET 5MG/325MG TAB PO ONE (21:15)
[2019-08-22] MEDS ORDERED: PARoxetine 10MG TABLET PO ONE (21:15)
--- NOTE | 2019-08-23 08:25 | REP ---
LEFT LONG FINGER SERIES: Four views. HISTORY: Swelling and pain. No comparison study. FINDINGS: Four views of the left long finger demonstrate an acute appearing linear fracture in the distal phalanx of the left long finger. There is evidence of partial amputation of the distal tuft of the distal phalanx of this digit as well although this may have been a previous injury. There is soft tissue irregularity associated with this. Correlation with history suggested. IMPRESSION: There is a nondisplaced longitudinally oriented fracture which is acute in the distal phalanx of the long finger. A partial amputation of the distal phalanx long finger is observed as well question previous injury. Soft tissue swelling and irregularity suggests an open fracture. Electronically Signed by Arturo Rajan MD 08/23/2019 09:29 A
== END 2019-08-22 22:21 | disposition home or self-care (01) ==
LOC: M ED 17:58
DX: S62.661A Nondisplaced fracture of distal phalanx of left index finger, initial encounter for closed fracture (principal); X58.XXXA Exposure to other specified factors, initial encounter; Y92.018 Other place in single-family (private) house as the place of occurrence of the external cause; Z76.0 Encounter for issue of repeat prescription; Z79.899 Other long term (current) drug therapy
CPT/HCPCS: 73140; 80048; 83605; 85025; 85652; 86140; 87040; 96361; 96365; 96375; 99284; J0690; J1885

== ENCOUNTER 2019-08-26 19:23 | Emergency (ER) | payer OTHER ==
[~2019-08-26] VITALS: Ht 177.8 cm; Wt 85.5 kg
[~2019-08-26 19:23] MED LIST changes: +NORC1TAB7 PO; +PAXI30TA11 PO
[2019-08-26 19:24] VITALS: BP 121/78
[2019-08-26] MEDS ORDERED: HYDR-3713 (19:36)
[2019-08-26] MEDS ORDERED: PARO30TA65 (19:36)
[2019-08-26] MEDS ORDERED: IBUP80TA PO (19:40)
[2019-08-26] MEDS ORDERED: ACET-683 PO (19:40)
[2019-08-26] MEDS ORDERED: PERC5TAB12 PO (20:28)
[2019-08-26] MEDS ORDERED: OXYCODONE/APAP 5MG/325MG(BULK FOR ED) 1 TABLET PO ONE (20:30)
== END 2019-08-26 20:43 | disposition home or self-care (01) ==
LOC: M ED 19:23
DX: K08.89 Other specified disorders of teeth and supporting structures (principal); Z79.899 Other long term (current) drug therapy

== ENCOUNTER 2019-09-21 21:22 | Emergency (ER) | payer OTHER ==
[~2019-09-21] VITALS: Ht 177.8 cm; Wt 83.2 kg
[~2019-09-21 21:22] MED LIST changes: +ACET-683 PO; +HYDR-3713; +IBUP80TA PO; +PARO30TA65
[2019-09-21 21:23] VITALS: BP 131/83
[2019-09-21] MEDS ORDERED: PENI500T PO (22:09)
[2019-09-21] MEDS ORDERED: PERCOCET 5MG/325MG TAB PO ONE (22:15)
== END 2019-09-21 22:48 | disposition home or self-care (01) ==
LOC: M ED 21:22
DX: K08.89 Other specified disorders of teeth and supporting structures (principal); F17.210 Nicotine dependence, cigarettes, uncomplicated

== ENCOUNTER → 2019-10-11 | Emergency (ER) | payer OTHER ==
[~2019-10-11] MED LIST changes: +PENI500T PO
== END | disposition left against medical advice (07) ==
LOC: M ED 14:08
DX: Z53.21 Procedure and treatment not carried out due to patient leaving prior to being seen by health care provider (principal)

== ENCOUNTER → 2019-10-23 | Emergency (ER) | payer OTHER ==
[~2019-10-23] MED LIST changes: +KETOROLAC TROMETHAMINE 10 MG TAB As Ordered ONE
== END | disposition home or self-care (01) ==
LOC: M ED 19:12
DX: K08.89 Other specified disorders of teeth and supporting structures (principal)

== ENCOUNTER 2020-05-13 22:44 | Emergency (ER) | payer OTHER ==
[~2020-05-13] VITALS: Ht 177.8 cm; Wt 87.2 kg
[~2020-05-13 22:44] MED LIST changes: -KETOROLAC TROMETHAMINE 10 MG TAB As Ordered ONE
[2020-05-13] MEDS ORDERED: CLEO300C2 PO (22:51)
[2020-05-14] MEDS ORDERED: NORCO 5/325MG TABLET (BULK FOR ED) PO ONE (00:35)
[2020-05-14] MEDS ORDERED: HYDR-3713 PO (00:38)
[2020-05-14 01:15] VITALS: BP 143/93
== END 2020-05-14 01:18 | disposition home or self-care (01) ==
LOC: M ED 22:44
DX: K02.9 Dental caries, unspecified (principal); S02.5XXA Fracture of tooth (traumatic), initial encounter for closed fracture; X58.XXXA Exposure to other specified factors, initial encounter; Y92.89 Other specified places as the place of occurrence of the external cause; F17.210 Nicotine dependence, cigarettes, uncomplicated

== ENCOUNTER 2020-06-26 20:28 | Emergency (ER) | payer OTHER ==
[~2020-06-26] VITALS: Ht 177.8 cm; Wt 84.6 kg
[~2020-06-26 20:28] MED LIST changes: +CLEO300C2 PO; +HYDR-3713 PO
[2020-06-26] MEDS ORDERED: NORCO, ANEXSIA 5/325MG TABLET (HYDROcodone/ACETAMINOPHEN) PO ONE (22:00)
[2020-06-26] MEDS ORDERED: AUGMENTIN 875 MG TAB PO ONE (22:00)
[2020-06-26] MEDS ORDERED: HYDR-3713 PO (22:03)
[2020-06-26] MEDS ORDERED: AUGM875T28 PO (22:03)
[2020-06-26 22:16] VITALS: BP 161/105
== END 2020-06-26 22:17 | disposition home or self-care (01) ==
LOC: M ED 20:28
DX: J32.9 Chronic sinusitis, unspecified (principal); F33.9 Major depressive disorder, recurrent, unspecified; F41.9 Anxiety disorder, unspecified; Z79.899 Other long term (current) drug therapy

== ENCOUNTER 2021-04-27 22:00 | Emergency (ER) | payer OTHER ==
[~2021-04-27] VITALS: Ht 177.8 cm; Wt 84.2 kg
[~2021-04-27 22:00] MED LIST changes: -IBUP200T45 PO; +IBUP200T46 PO
[2021-04-27] MEDS ORDERED: AMOX875T2 PO (23:33)
[2021-04-27] MEDS ORDERED: AUGMENTIN 875 MG TAB PO ONE (23:35)
[2021-04-27] MEDS ORDERED: IBUPROFEN 600MG TAB PO ONE (23:35)
[2021-04-27 23:39] VITALS: BP 123/82
== END 2021-04-27 23:41 | disposition home or self-care (01) ==
LOC: M ED 22:00
DX: J32.9 Chronic sinusitis, unspecified (principal); G89.28 Other chronic postprocedural pain

== ENCOUNTER 2021-10-24 03:01 | Inpatient (IN) | payer OTHER ==
[~2021-10-24] VITALS: Ht 175.3 cm; Wt 77.3 kg
[~2021-10-24 03:01] MED LIST changes: +AMOX875T2 PO
[2021-10-24 03:49] LABS: HEMATOCRIT 40.1 % (42.0-52.0); MEAN CORPUSCULAR HEMOGLOBIN 32.2 pg (27.0-33.0); MEAN CORPUSCULAR HGB CONC 34.9 g/dl (32.0-36.5); MEAN CORPUSCULAR VOLUME 92.2 fl (80.0-96.0); PLATELET COUNT, AUTOMATED 272 10^3/uL (150-450); RED BLOOD COUNT 4.35 10^6/uL (4.30-6.10); WHITE BLOOD COUNT 9.1 10^3/uL (4.0-10.0)
[2021-10-24 04:28] LABS: RSV AMPLIFICATION NEGATIVE (NEGATIVE)
[2021-10-24 04:30] LABS: AMPHETAMINES LEVEL URINE NEGATIVE (NEGATIVE); BARBITURATES URINE NEGATIVE (NEGATIVE); BENZODIAZEPINES URINE NEGATIVE (NEGATIVE); CANNABINOIDS URINE POSITIVE (NEGATIVE); COCAINE METABOLITE URINE NEGATIVE (NEGATIVE); METHADONE URINE NEGATIVE (NEGATIVE); OPIATES URINE NEGATIVE (NEGATIVE); PHENCYCLIDINE URINE NEGATIVE (NEGATIVE)
[2021-10-24 04:38] LABS: ACETAMINOPHEN LEVEL 7.5 UG/ML (10.0-30.0); ALBUMIN 3.8 GM/DL (3.2-5.2); ALT/SGPT 32 U/L (12-78); BILIRUBIN,DIRECT 0.1 MG/DL (0.0-0.2); BILIRUBIN,TOTAL 0.5 MG/DL (0.2-1.0); BLOOD UREA NITROGEN 13 MG/DL (7-18); CALCIUM LEVEL 9.2 MG/DL (8.5-10.1); CARBON DIOXIDE LEVEL 26 MEQ/L (21-32); CHLORIDE LEVEL 108 MEQ/L (98-107); CREATININE FOR GFR 0.93 MG/DL (0.70-1.30); ETHYL ALCOHOL (ETHANOL) 0.004 % (0.000-0.010); GLOMERULAR FILTRATION RATE > 60.0 (>60); GLUCOSE, FASTING 89 MG/DL (70-100); POTASSIUM SERUM 3.6 MEQ/L (3.5-5.1); SALICYLATE LEVEL < 1.7 MG/DL (5.0-30.0); SODIUM LEVEL 140 MEQ/L (136-145); TOTAL PROTEIN 6.8 GM/DL (6.4-8.2)
[2021-10-24] MEDS ORDERED: OLANZapine INTRAMUSCULAR 10MG VIAL IM ONE ×2 (10:05→15:50)
[2021-10-24] MEDS ORDERED: MIDAZOLAM INJ 2MG/2ML VIAL (J2250 PER 1MG) IM ONE ×2 (10:05→15:50)
[2021-10-24] MEDS ORDERED: MIDAZOLAM 5MG/ML 1ML VIAL (J2250 PER 1MG) As Ordered ONE (10:07)
[2021-10-24] MEDS ORDERED: HOME MED LIST COMPLETE! XX SCH (13:35)
[2021-10-24] MEDS ORDERED: LORazepam 2 MG TAB PO STA (15:47)
[2021-10-24] MEDS ORDERED: OLANZapine ORAL DISINTEGRATING TAB 5MG PO ONE (15:50)
[2021-10-25] MEDS ORDERED: diphenhydrAMINE 50MG CAP PO ONE (04:55)
[2021-10-25] MEDS ORDERED: IBUPROFEN 800 MG TAB PO ONE (04:55)
[2021-10-25] MEDS ORDERED: LORazepam 2 MG TAB PO ONE (17:05)
[2021-10-25] MEDS ORDERED: IBUPROFEN 600MG TAB PO ONE (17:15)
[2021-10-26] MEDS ORDERED: KLON1TAB PO (00:07)
[2021-10-26] MEDS ORDERED: PARoxetine 10MG TABLET PO ONE (00:10)
[2021-10-26] MEDS ORDERED: clonazePAM 1 MG TAB PO ONE (00:10)
[2021-10-26] MEDS ORDERED: OLANZapine INTRAMUSCULAR 10MG VIAL IM ONE (14:30)
[2021-10-26] MEDS ORDERED: MIDAZOLAM INJ 2MG/2ML VIAL (J2250 PER 1MG) IM ONE (14:30)
[2021-10-26 16:08] LABS: RSV AMPLIFICATION NEGATIVE (NEGATIVE)
[2021-10-26] MEDS ORDERED: IBUPROFEN 400MG TAB PO ONE (17:35)
[2021-10-26] MEDS ORDERED: MOM 30ML SUSPENSION UDC PO PRN (18:45)
[2021-10-26] MEDS ORDERED: NICOTINE 21MG/24HR 1 EA TRANSDERMAL TD PRN (18:45)
[2021-10-26] MEDS ORDERED: MAALOX 30 ML SUSP *UDC PO PRN (18:45)
[2021-10-26] MEDS ORDERED: traZODone 50 MG TAB PO PRN (18:45)
[2021-10-26] MEDS: PARoxetine 10MG TABLET PO SCH (21:08)
[2021-10-26 21:43] VITALS: BP 155/101
[2021-10-26] MEDS: OLANZapine ORAL DISINTEGRATING TAB 5MG PO PRN (23:19)
[2021-10-27 06:53] VITALS: BP 139/86
[2021-10-27] MEDS: AUGMENTIN 500MG TAB PO SCH ×2 (14:37→21:22)
[2021-10-27 18:10] VITALS: BP 156/94
[2021-10-27] MEDS ORDERED: hydrOXYzine 50 MG TAB PO ONE (19:40)
[2021-10-27] MEDS: PARoxetine 10MG TABLET PO SCH (21:22)
[2021-10-27] MEDS: OLANZapine ORAL DISINTEGRATING TAB 5MG PO PRN (21:22)
[2021-10-28] MEDS: AUGMENTIN 500MG TAB PO SCH ×3 (05:40→21:40)
[2021-10-28 06:31] VITALS: BP 160/80
[2021-10-28 17:51] VITALS: BP 153/104
[2021-10-28] MEDS: DIVALPROEX 125 MG TAB PO SCH (21:38)
[2021-10-28] MEDS: PARoxetine 10MG TABLET PO SCH (21:40)
[2021-10-29] MEDS: IBUPROFEN 400MG TAB PO PRN ×2 (05:26→18:25)
[2021-10-29] MEDS: AUGMENTIN 500MG TAB PO SCH ×3 (05:44→21:40)
[2021-10-29 07:00] VITALS: BP 137/93
[2021-10-29] MEDS: DIVALPROEX 125 MG TAB PO SCH (09:47)
[2021-10-29 18:19] VITALS: BP 114/68
[2021-10-29] MEDS: PARoxetine 10MG TABLET PO SCH (21:40)
[2021-10-30] MEDS: AUGMENTIN 500MG TAB PO SCH (05:21)
[2021-10-30 06:24] VITALS: BP 132/78
[2021-10-30] MEDS: DIVALPROEX 125 MG TAB PO SCH (08:41)
[2021-10-30] MEDS ORDERED: PARO30TA4 PO (11:01)
[2021-10-30] MEDS ORDERED: DEPA1TAB PO (11:01)
== END 2021-10-30 12:00 | disposition home or self-care (01) | DRG 755 ==
LOC: M ED 03:01 → M ED INP 10-26 18:44 → M PSY 10-26 21:40
PROVIDERS: ADMIT Psychiatry & Neurology Psychiatry; ATTEND Psychiatry & Neurology Psychiatry
DX: F43.10 Post-traumatic stress disorder, unspecified (principal); R45.850 Homicidal ideations; H66.90 Otitis media, unspecified, unspecified ear; Z79.899 Other long term (current) drug therapy; F12.10 Cannabis abuse, uncomplicated

== ENCOUNTER 2021-11-01 12:32 | Emergency (ER) | payer OTHER ==
[~2021-11-01] VITALS: Ht 180.3 cm; Wt 81.8 kg
[~2021-11-01 12:32] MED LIST changes: +DEPA1TAB PO; +KLON1TAB PO
[2021-11-01] MEDS ORDERED: OLANZapine ORAL DISINTEGRATING TAB 5MG PO ONE (13:10)
[2021-11-01] MEDS ORDERED: LORazepam 2 MG TAB PO ONE (13:25)
[2021-11-01 13:33] LABS: MEAN CORPUSCULAR HEMOGLOBIN 31.1 pg (27.0-33.0); MEAN CORPUSCULAR HGB CONC 33.3 g/dl (32.0-36.5); MEAN CORPUSCULAR VOLUME 93.3 fl (80.0-96.0); PLATELET COUNT, AUTOMATED 244 10^3/uL (150-450); WHITE BLOOD COUNT 7.2 10^3/uL (4.0-10.0)
[2021-11-01 14:19] LABS: RSV AMPLIFICATION NEGATIVE (NEGATIVE)
[2021-11-01 14:23] LABS: ACETAMINOPHEN LEVEL < 2.0 UG/ML (10.0-30.0); ALBUMIN 3.9 GM/DL (3.2-5.2); ALT/SGPT 30 U/L (12-78); BILIRUBIN,DIRECT 0.1 MG/DL (0.0-0.2); BILIRUBIN,TOTAL 0.6 MG/DL (0.2-1.0); BLOOD UREA NITROGEN 17 MG/DL (7-18); CALCIUM LEVEL 9.4 MG/DL (8.5-10.1); CARBON DIOXIDE LEVEL 26 MEQ/L (21-32); CHLORIDE LEVEL 106 MEQ/L (98-107); CREATININE FOR GFR 1.04 MG/DL (0.70-1.30); ETHYL ALCOHOL (ETHANOL) < 0.003 % (0.000-0.010); GLOMERULAR FILTRATION RATE > 60.0 (>60); GLUCOSE, FASTING 100 MG/DL (70-100); POTASSIUM SERUM 4.9 MEQ/L (3.5-5.1); SALICYLATE LEVEL < 1.7 MG/DL (5.0-30.0); SODIUM LEVEL 137 MEQ/L (136-145); THYROID STIMULATING HORMONE 0.521 uIU/ML (0.358-3.740); TOTAL PROTEIN 6.4 GM/DL (6.4-8.2)
[2021-11-01 15:02] LABS: AMPHETAMINES LEVEL URINE NEGATIVE (NEGATIVE); BARBITURATES URINE NEGATIVE (NEGATIVE); BENZODIAZEPINES URINE NEGATIVE (NEGATIVE); CANNABINOIDS URINE POSITIVE (NEGATIVE); COCAINE METABOLITE URINE NEGATIVE (NEGATIVE); METHADONE URINE NEGATIVE (NEGATIVE); OPIATES URINE NEGATIVE (NEGATIVE); PHENCYCLIDINE URINE NEGATIVE (NEGATIVE)
[2021-11-01] MEDS ORDERED: PARO30TA65 PO (17:13)
[2021-11-01] MEDS ORDERED: DIVA1TAB48 PO (17:13)
[2021-11-01] MEDS ORDERED: HOME MED LIST COMPLETE! XX SCH (17:15)
[2021-11-01 18:00] VITALS: BP 132/77
[2021-11-02 12:08] LABS: HIV 1&2 SCREEN CENTAUR NEGATIVE (NEGATIVE)
== END 2021-11-01 18:58 | disposition home or self-care (01) ==
LOC: EDBD 12:32 → M ED 12:32
DX: F30.8 Other manic episodes (principal); Z79.899 Other long term (current) drug therapy

== ENCOUNTER → 2023-11-08 | Outpatient (CLI) | payer OTHER ==
[~2023-11-08] MED LIST changes: +DIVA1TAB48 PO; -KLON0.5T PO; +KLON0.5T8 PO; -KLON1TAB PO; +KLON1TAB13 PO; +PARO30TA65 PO; -PAXI30TA11 PO; +PAXI30TA12 PO
== END ==
LOC: M OUTALCOH 10:20
PROVIDERS: ATTEND Psychiatry & Neurology Psychiatry
DX: F12.10 Cannabis abuse, uncomplicated (principal)

== ENCOUNTER → 2023-12-05 | Outpatient (REF) | LOC: M PLAIMG 14:15 | PROVIDERS: ATTEND Nurse Practitioner Family | DX: R52 Pain, unspecified (principal) ==